=== PATIENT | male | born 1940 | race Caucasian/White ===

== ENCOUNTER 2022-02-11 12:27 | Outpatient (CLI) | payer MEDICARE, SELFPAY ==
--- NOTE | ~2022-02-11 | XR_ITS ---
EXAMINATION: XR lg joint inject/asp w image DATE: 02/11/2022 13:06 INDICATION: Right hip pain. TECHNIQUE: A time-out was performed to verify the patient's name, date of , and procedure to b e performed. The procedure including the risks, benefits, and alternatives was discussed with the pat ient. Risks discussed included bleeding and infection. The patient understood the risks and agreed to proceed. The skin overlying the right hip joint was prepped and draped in usual sterile fashion. A nesthetic was administered with 1% lidocaine subcutaneously. A 22 G needle was advanced under fluoro scopic guidance into the joint. Subsequently, injectate consisting of 5 mL 1% lidocaine and 2 mL 10 mg/mL Kenalog was instilled. The needle was removed and the entry site was cleaned and dressed. The re were no immediate complications. Fluoroscopy exposure time was 0.1 minutes. The total number of im ages was 1. FINDINGS: Real-time fluoroscopy demonstrates the needle in the right hip joint. Patient's pain prior to procedure:12/09. Patient's pain following the procedure: 08/11. IMPRESSION: 1. Fluoroscopy guided right hip joint injection of local anesthetic and steroid with decrease in the patient's presenting pain. Reviewed, dictated and finalized at location A.
== END 2022-02-11 12:28 | disposition home or self-care (01) ==
PROVIDERS: PCP Internal Medicine; Visit Provider Nurse Practitioner
DX: M25.551 Pain in right hip (principal)
CPT/HCPCS: 20610; 77002; J3301

== ENCOUNTER 2022-05-14 07:50 | Outpatient (CLI) | payer MEDICARE, SELFPAY ==
--- NOTE | 2022-05-14 08:47 | ECG_ITS ---
Measurements Intervals [place] Rate: 61 P: 0 MI: 132 QRS: 14 QRSD: 94 T: 30 QT: 416 QTc: 422 Interpretive Statements SINUS RHYTHM NO PREVIOUS ECG AVAILABLE FOR COMPARISON Electronically Signed On 05-14-2022 14:51:58 CDT by Joe Thornton M.D.
[2022-05-14 09:26] LABS: Hemoglobin A1C 4.8 % (<5.7)
[2022-05-14 09:34] LABS: Urine Cotinine NEGATIVE
== END 2022-05-14 07:51 | disposition home or self-care (01) ==
LOC: ANHSURGERY 07:55
PROVIDERS: PCP Internal Medicine; Visit Provider Orthopaedic Surgery
DX: Z01.818 Encounter for other preprocedural examination (principal); M16.11 Unilateral primary osteoarthritis, right hip
CPT/HCPCS: 80307; 83036; 86850; 86900; 86901; 87081; 93005

== ENCOUNTER 2022-07-08 07:53 | Outpatient (CLI) | payer MEDICARE, SELFPAY ==
[2022-07-08 08:55] LABS: Basophils Percent Auto 0.3 % (0.2-1.2); Eosinophils Percent Auto 0.6 % (0-4.4); Hematocrit 42.3 % (42.0-52.0); Hemoglobin 14.5 g/dL (14.0-18.0); Immature Granulocyte Absolute 0.01 K/mm3 (0.00-0.031); Immature Granulocyte Percent A 0.3 % (0-0.5); Lymphocytes Absolute Auto 0.67 K/mm3 (0.9-3.2); Lymphocytes Percent Auto 20.1 % (18.3-44.2); Mean Corpuscular HGB Conc 34.3 g/dl (32-36); Mean Corpuscular Hemoglobin 32.2 pg (26-34); Mean Platelet Volume 10.1 fl (7.4-10.4); Monocytes Absolute Auto 0.5 K/mm3 (0.1-0.6); Monocytes Percent Auto 16.2 % (2.6-8.5); Neutrophils Absolute Auto 2.1 K/mm3 (1.3-6.7); Neutrophils Percent Auto 62.5 % (45.5-73.1); Platelet Count Result 200 k/mm3 (150-375); Red Cell Distribution Width 12.2 % (11.5-14.5); White Blood Count 3.3 K/mm3 (4.5-10.0)
[2022-07-08 09:09] LABS: Albumin Level 4.9 g/dL (3.5-5.1); Estimated Glomerular Filt Rate > 60; Glucose 100 mg/dL (65-110)
== END 2022-07-08 07:54 | disposition home or self-care (01) ==
PROVIDERS: PCP Internal Medicine; Visit Provider Orthopaedic Surgery
DX: Z01.818 Encounter for other preprocedural examination (principal); M16.11 Unilateral primary osteoarthritis, right hip; Z83.3 Family history of diabetes mellitus; Z96.642 Presence of left artificial hip joint
CPT/HCPCS: 36415; 82040; 82565; 82947; 85025; 86850; 86900; 86901; 87081

== ENCOUNTER 2022-08-27 07:49 | Outpatient (CLI) | payer MEDICARE, SELFPAY ==
[2022-08-27 08:48] LABS: Hemoglobin A1C 4.6 % (<5.7)
[2022-08-27 09:12] LABS: Urine Cotinine NEGATIVE
== END 2022-08-27 07:50 | disposition home or self-care (01) ==
LOC: ANHSURGERY 07:50
PROVIDERS: PCP Internal Medicine; Visit Provider Orthopaedic Surgery
DX: M16.11 Unilateral primary osteoarthritis, right hip (principal); Z01.818 Encounter for other preprocedural examination
CPT/HCPCS: 80307; 83036; 86850; 86900; 86901

== ENCOUNTER 2022-08-31 00:06 | Day surgery (SDC) | payer MEDICARE, SELFPAY ==
[2022-05-14 08:02] VITALS: BMI 25.1
--- NOTE | 2022-05-14 08:26 | PC.NURSE ---
Report to the Outpatient Waiting Room, entrance under the green pavilion located off [facility], at time _0600 on date _05/25/22 . OR Time: ___0730 Time changes happen often and if your time is changed the preop area will call you the afternoon before. - You and your visitor will be asked to self-screen and do not enter if you have any COVID symptoms. - We encourage only one visitor and NO visitors under age 16 are allowed at this time. Your visitor will receive communication by the phone number that is given day of service. - The patient visitor is requested to social distance or may leave the building when not with patient due to restrictions. - A mask is required within the hospital. Patients may have clear liquids (water, carbonated beverages, clear teas, apple juice) until 3 hours prior to surgery with a maximum of 20 ounces. - No food from midnight until time of surgery - Infants may have breast milk until 4 hours before surgery, infant formula 6 hours prior to surgery. - Children will be allowed to drink immediately following surgery. If applicable, please bring a bottle or sippy cup to assist with drinking. Juice, water, soda, and popsicles are readily available. For infants on formula, please bring formula the day of surgery. Pacifiers are allowed. Take the following medications with a SIP of water the morning of surgery: __LORAZEPAM Medications to discontinue per physician ____ALL VITAMINS AND SUPPLEMENTS 3 DAYS PRE OP Date to take last dose__05/21/22 Please no make-up, nail anguillan, hairspray, perfume, deodorant, or body powder the day of surgery. No jewelry (including any body piercings) or valuables the day of surgery, leave them at home. Please take a shower or bath the night before, or the morning of, surgery with an antibacterial soap. Wear comfortable, loose fitting clothing. Children are encouraged to wear pajamas. - Jewelry must be removed prior to entering the operating room. Rings and piercings that are not removed may be cut off. - The hospital will not accept responsibility for valuables. - Please leave all valuables, including medications, at home the day of surgery. If you are going home after surgery, a licensed car pick up driver must drive you home. - NO public transportation without another adult. - We recommend that an adult stay with you for 24 hours following discharge. - We also recommend that you do not drive, make important decision, drink alcoholic beverages, or take any drugs that were not prescribed by your health care provider for at least 24 hours after your discharge time. For Pediatric surgeries, we recommend two adults accompany the child home. Follow any additional instructions given to you from your surgeon. If you or anyone in your household have experienced Covid symptoms in the past week, please notify your surgeon or the nurse liaison at the phone number below for possible testing. VERBAL AND WRITTEN instructions given to __PATIENT AND PHIL and asked if any additional questions and then verbalized understanding. Patient advised to call surgeon office or pre surgery nurse liaison [phone] if any additional questions.
[2022-05-14 08:45] VITALS: BP 150/81; PULSE 61; RESP 18; TEMP 36.8; O2SAT 98
--- NOTE | 2022-07-01 13:59 | PC.NURSE ---
Report to the Outpatient Waiting Room, entrance under the green pavilion located off [facility], at time 0600 on date __07/13/22 . Planned Procedure Time: _0730 . Time changes happen often and if your time is changed the preop area will call you the afternoon before. - You and your visitor will be asked to self-screen and do not enter if you have any COVID symptoms. - Only one visitor is requested with a max of two and NO children visitors are allowed at this time. - The patient visitor may be requested to leave or wait in car when not with patient due to distancing restrictions. - A mask is optional within the hospital. Patients may have clear liquids (water, carbonated beverages, clear teas, apple juice) until 3 hours prior to surgery with a maximum of 20 ounces. - No food from midnight until time of surgery - Infants may have breast milk until 4 hours before surgery, formula 6 hours prior to surgery. - Children will be allowed to drink immediately following surgery. If applicable, please bring a bottle or sippy cup to assist with drinking. Juice, water, soda, and popsicles are readily available. For infants on formula, please bring formula the day of surgery. Pacifiers are allowed. Take the following medications with a SIP of water the morning of surgery: ___LORAZEPAM Medications to discontinue per physician __ALL VITAMINS/SUPPLEMENTS 3 DAYS PRE OP Date to take last dose 07/09/22 Please no make-up, nail khmer, hairspray, perfume, deodorant, or body powder the day of surgery. No jewelry (including any body piercings) or valuables the day of surgery, leave them at home. Please take a shower or bath the night before, or the morning of, surgery with an antibacterial soap. Wear comfortable, loose fitting clothing. Children are encouraged to wear pajamas. - Jewelry must be removed prior to entering the operating room. Rings and piercings that are not removed may be cut off. - The hospital will not accept responsibility for valuables. - Please leave all valuables, including medications, at home the day of surgery. If you are going home after surgery, a licensed parts driver must drive you home. - NO public transportation without another adult if you receive anesthesia. - We recommend that an adult stay with you for 24 hours following discharge. - We also recommend that you do not drive, make important decision, drink alcoholic beverages, or take any drugs that were not prescribed by your health care provider for at least 24 hours after your discharge time. For Pediatric surgeries, we recommend two adults accompany the child home. Follow any additional instructions given to you from your surgeon. If you or anyone in your household have experienced Covid symptoms in the past week, please notify your surgeon or the nurse liaison at the phone number below for possible testing. Telephone instructions given to _PATIENT and asked if any additional questions and then verbalized understanding. Patient advised to call surgeon office or pre surgery nurse liaison [phone] if any additional questions.
--- NOTE | 2022-07-01 14:06 | PC.NURSE ---
PT STATES NO CHANGE IN HEALTH HX SINCE LAST INTERVIEW 05/14/22 EXCEPT HAD SOME TEETH EXTRACTED ON 2021
--- NOTE | 2022-08-24 10:18 | PC.NURSE ---
Report to the Outpatient Waiting Room, entrance under the green pavilion located off [facility], at time _0600 on date __08/31. . Planned Procedure Time: __729 . Time changes happen often and if your time is changed the preop area will call you the afternoon before. - You and your visitor will be asked to self-screen and do not enter if you have any COVID symptoms. - Only one visitor is requested with a max of two and NO children visitors are allowed at this time. - The patient visitor may be requested to leave or wait in car when not with patient due to distancing restrictions. - A mask is optional within the hospital. Patients may have clear liquids (water, carbonated beverages, clear teas, apple juice) until 3 hours prior to surgery with a maximum of 20 ounces. - No food from midnight until time of surgery - Infants may have breast milk until 4 hours before surgery, formula 6 hours prior to surgery. - Children will be allowed to drink immediately following surgery. If applicable, please bring a bottle or sippy cup to assist with drinking. Juice, water, soda, and popsicles are readily available. For infants on formula, please bring formula the day of surgery. Pacifiers are allowed. Take the following medications with a SIP of water the morning of surgery: LORAZEPAM Medications to discontinue per physician ___ALL VITAMINS AND SUPPLEMENTS 3 DAYS PRE OP LAST DOSE 08/27/22 Please no make-up, nail japanese, hairspray, perfume, deodorant, or body powder the day of surgery. No jewelry (including any body piercings) or valuables the day of surgery, leave them at home. Please take a shower or bath the night before, or the morning of, surgery with an antibacterial soap. Wear comfortable, loose fitting clothing. Children are encouraged to wear pajamas. - Jewelry must be removed prior to entering the operating room. Rings and piercings that are not removed may be cut off. - The hospital will not accept responsibility for valuables. - Please leave all valuables, including medications, at home the day of surgery. If you are going home after surgery, a licensed mail truck driver must drive you home. - NO public transportation without another adult if you receive anesthesia. - We recommend that an adult stay with you for 24 hours following discharge. - We also recommend that you do not drive, make important decision, drink alcoholic beverages, or take any drugs that were not prescribed by your health care provider for at least 24 hours after your discharge time. Follow any additional instructions given to you from your surgeon. If you or anyone in your household have experienced Covid symptoms in the past week, please notify your surgeon or the nurse liaison at the phone number below for possible testing. Telephone instructions given to ___PATIENT and asked if any additional questions and then verbalized understanding. Patient advised to call surgeon office or pre surgery nurse liaison [phone] if any additional questions.
[2022-08-24 10:20] VITALS: BMI 25.0
[2022-08-31] VITALS (13 sets, daily range): BP systolic 117–198; BP diastolic 77–99; PULSE 65–114; RESP 13–25; TEMP 36.2–36.9; O2SAT 94–100
--- NOTE | ~2022-08-31 | XR_ITS ---
EXAMINATION: XR surgery orthopedic DATE: 08/31/2022 10:49 INDICATION: Right hip osteoarthritis. TECHNIQUE: 3 intraoperative fluoroscopic views of right hip were obtained. I was not present. Fluoros copy exposure time was 21 seconds. COMPARISON: Right hip radiographs 08/20/22 FINDINGS: The initial image demonstrates advanced right hip osteoarthritis. Additional images demonst rate a total right hip arthroplasty in progress in near-anatomic alignment. IMPRESSION: 1. Total right hip arthroplasty in progress in near-anatomic alignment. Reviewed, dictated and finalized at location A. HER FISH
--- NOTE | ~2022-08-31 | XR_ITS ---
EXAMINATION: XR hip RT min 2V DATE: 08/31/2022 10:47 INDICATION: Total right hip arthroplasty. Postop. TECHNIQUE: 2 views of right hip were obtained. COMPARISON: Right hip radiograph 08/20/22 FINDINGS: There is a total right hip arthroplasty in near-anatomic alignment. No fracture. There is g as in the soft tissues, consistent with recent surgery. Surgical clips overlie the pelvis. IMPRESSION: 1. Total right hip arthroplasty in near-anatomic alignment. Reviewed, dictated and finalized at location A. R [employer]
[2022-08-31] MEDS: LACTATED RINGERS 1,000 ML 30 ML IV CONT ×2 (06:25→10:22)
[2022-08-31] MEDS: ACETAMINOPHEN 500 MG TABLET 1000 MG PO (06:29)
[2022-08-31] MEDS: TRANEXAMIC ACID 1,000MG/ISO100 1,000 MG/100 ML BAG 200 MG IVPB (06:55)
--- NOTE | 2022-08-31 07:04 | WPDANESEPPF ---
Anes - Initial Pre Proc Eval Procedure: Operation Date: 08/31/22 07:30 Proposed Procedures p Right Total Hip Arthroplasty, Anterior Approach - Lucas Sevilla MD Date/Time: 08/31/22 07:04 Surgeon: Lucas Sevilla MD Pre Op Diagnosis: O.A. Right Hip Patient Data Age: 82 Gender: M Height: 1.7 m Weight: 70 kg Last Vital Signs Temp 36.9 C 08/31/22 06:10 Pulse 72 08/31/22 06:10 Resp 16 08/31/22 06:10 BP 171/90 H 08/31/22 06:10 Pulse Ox 100 08/31/22 06:10 O2 Del Method Room Air 08/31/22 06:10 Allergies Allergy/AdvReac Type Severity Reaction Status Date / Time No Known Allergies Allergy Verified 08/31/22 06:08 Home Medications Medication Instructions Recorded Confirmed Type ascorbate calcium (vitamin C) 500 500 mg PO DAILY 02/04/22 08/31/22 History mg tablet multivitamin 1 tablet PO DAILY 02/04/22 08/31/22 History lorazepam 0.5 mg tablet 0.5 mg PO DAILY 05/14/22 08/31/22 History acetaminophen 650 mg 650 mg PO Q12H PAIN 05/19/22 08/31/22 History tablet,extended release (Tylenol Arthritis Pain) rivaroxaban 10 mg tablet (Xarelto) 10 mg PO DAILY 14 days #14 tabs 08/20/22 08/24/22 Rx Patient hx anesthesia problems: none Family hx anesthesia problems: none Results Review: All pre-operative results and documents have been reviewed as part of the pre-operative evaluation. [facility] Past Medical History Medical History No significant past medical history Primary osteoarthritis of right hip Surgical History Surgical History History of left hip replacement Dr. St - anterior Family History Family History Mother Diabetes mellitus Cerebrovascular accident Other Family history of cancer Social History Social History Smoking packs per day: 0.5 Smoking cigarettes per day: 10.0 Years smoked: 10 Smoking pack-years: 5.00 Smoking status: Former smoker Tobacco type: cigarettes Smoking end date: 08/02/69 Additional smoking assessment comments: DENIES ANY FORM OF TOBACCO USE Alcohol intake: current Drinks per week: 14 Alcohol use details: Wine Substance use: never Living arrangements: with family Occupation/Education: retired Gender identity (if verbalized by the patient): Male Spiritual care concerns: No Anes - Eval Final PreProcedure Day of Procedure 08/31/22 07:04 Patient weight: normal Heart: regular rate and rhythm Lungs: clear to auscultation Airway: Mallampati scale class II Neurological: alert and oriented Last oral intake: >/= 8 hours ASA classification: III Emergent: no Anesthetic plan: proceed Anesthesia type and monitoring: general ETT and standard monitoring Results Review: All pre-operative results and documents have been reviewed as part of the pre-operative evaluation. Informed Consent: The patient's anesthetic plan and its attendant risks and benefits were discussed with the patient/family/POA. Questions were solicited and answers provided to the satisfaction of the patient/family/POA.
--- NOTE | 2022-08-31 07:32 | WPDHPUPDATE1 ---
History and Physical Update Update Date/Time: 08/31/22 07:32 History and Physical has been reviewed, including an updated exam of the patient. There are NO changes in the patient's condition. Risks, benefits, and alternatives have been discussed and questions answered. Patient agrees to proceed with procedure.
[2022-08-31] MEDS: ceFAZolin 2 GM/D5W 50 ML 2 GM/50 ML BAG IVPB ×2 (07:36→16:20)
[2022-08-31] MEDS: ceFAZolin SODIUM 1 GM VIAL IV PUSH (09:49)
--- NOTE | 2022-08-31 09:55 | SUR.OPER ---
150mL of clear yellow urine drained from hernandez
--- NOTE | 2022-08-31 10:30 | W.PM.PROC2 ---
Procedure Note - Detailed Date of Procedure 08/31/22 Pre-op Diagnosis O.A. Right Hip Post-op Diagnosis Same Procedure Performed Right total hip replacement through an anterior approach Surgeon Lucas Sevilla MD Lighting Specialist Ghislaine Goncalves Anesthesia General Description of Procedure The patient was identified, proper side identified, and then taken to the operating room. After general anesthetic induction and intubation, he was then transferred over to the [place] table positioning supine in the usual manner for an anterior hip procedure. Positioning was assessed fluoroscopically after which the right hip and thigh was prepped and draped in the usual sterile fashion. 10 cc of the arthroplasty solution was injected into the subcutaneous tissue over the TFL muscle belly. Longitudinal incision was made over the muscle belly. Subcutaneous tissue was sharply dissected down to the TFL fascia which was incised in line with the fibers the TFL. The TFL was retracted laterally and the rectus femoris medially. The rectus fascia was divided. The branches of the anterior femoral circumflex artery were identified and cauterized allowing for access to the hip capsule. Pericapsular fatty tissue was removed. The capsule was divided in an inverted T-fashion. The neck cut was made one fingerbreadth above the level of the lesser trochanter. Head fragment was removed and the acetabulum cleared of debris. Acetabulum was sequentially reamed under fluoroscopic visualization up to 57 mm. A 58 G7 acetabular cup was inserted under fluoroscopic visualization in approximately 40? of abduction and 15? of anteversion following the patient's anatomy. It was further secured with a single screw and then the liner for the size 36 head was placed. The femur was then delivered up into the wound with the appropriate releases. The proximal femur was prepared for the 13 high offset microplasty stem and a trial reduction was undertaken. Overall alignment was assessed fluoroscopically in the AP and lateral views noting it to be satisfactory. Trial components were removed. The wound was irrigated with pulsatile lavage. The real size 13 high offset micro plasty stem was then seated. This construct with a standard, size 36 head gave excellent evangelical of leg lengths and stability so the real standard size 36 ceramic head was attached to the neck of the femoral component after it had been cleaned and dried. Hip was again reduced and stability assessed, and it was noted to be stable. 3 minute dilute Betadine wash/soak was carried out. After final lavage of the wound, the periarticular tissues were injected with an additional 50 cc of the arthroplasty solution. Surgicel powder was used for additional hemostasis in the wound. The TFL fascia with 0 looped PDS suture, the subcu with two of strata fix in the deeper layers and two of strata fix subcuticular stitch. Tissue adhesive was used for the skin. Sterile dressing was applied. He tolerated the procedure well. He was transferred back to a bed and taken to recovery area in stable condition. There were no known intraoperative complications. Estimated blood loss was 250 cc. He received perioperative antibiotics. Estimated Blood Loss -250.0 Urine Output -150.0 Drains No Packing No Pathology None sent Complications No immediate complications Condition Stable Disposition PACU [facility] Billing Surgery - Charge Forward: Surgery Billing (78589 for the hip replacement; 51204 for intraoperative fluoroscopic use.)
[2022-08-31] MEDS: fentaNYL CITRATE INJ (*CRX) 100 MCG/2 ML VIAL 25 MCG IV PUSH ×3 (10:35→10:47)
--- NOTE | 2022-08-31 10:39 | SUR.PHASEI ---
PORTABLE XRAY OF RIGHT HIP IN PROGRESS.
[2022-08-31] MEDS: hydrALAZINE HCL 20 MG/ML VIAL 10 MG IV PUSH (11:04)
--- NOTE | 2022-08-31 11:19 | SUR.PHASEI ---
1100 DR. LU CALLED RE: HYPERTENSION; ORDERED HYDRALAZINE TO BE GIVEN.
--- NOTE | 2022-08-31 11:51 | ADMGEN ---
This patient, Phillip Styles, was admitted to 2 Medical Room 251-. Patient/family oriented to hospital policies and general routines including ID bracelet, bed and alarms, visiting hours, pain management, procedures, bathroom and other care routines, personal items, smoking policy, room service/diet, and visiting hours. Information on how to activate the Rapid Response Team has been discussed. Patient/Family are encouraged to report perceived risks to care and to ask questions if they do not understand what they are told or what they should do.
[2022-08-31] MEDS: HYDROcodone/acetaminophen (*CRX) 5-325 MG TABLET 1 TAB PO ×3 (12:12→18:47)
[2022-08-31 12:15] LABS: Hematocrit 41.1 % (42.0-52.0); Hemoglobin 13.9 g/dL (14.0-18.0)
[2022-08-31] MEDS: SENNA/DOCUSATE SODIUM TABLET 2 TAB PO (16:20)
[2022-08-31] MEDS: FAMOTIDINE 20 MG TABLET PO (20:08)
[2022-08-31] MEDS: HYDROcodone/acetaminophen (*CRX) 5-325 MG TABLET 2 TAB PO (21:47)
--- NOTE | 2022-08-31 23:00 | WPDCN ---
Assessment and Plan Assessment and plan (1) Primary osteoarthritis of right hip: Code(s): M16.11 - Unilateral primary osteoarthritis, right hip Status: Chronic Assessment and Plan: Postoperative day 0 status post right total hip replacement through an anterior approach. Wound care and DVT prophylaxis deferred to Dr. Sevilla. Pain has not been very well controlled and she is describing muscle spasms and cramps thus will try 1 time dose of p.o. diazepam to see if that may help control his pain a bit better. Baseline labs ordered for a.m.. Agree with PT/OT consult. (2) Elevated blood pressure reading: Code(s): R03.0 - Elevated blood-pressure reading, without diagnosis of hypertension Status: Acute Assessment and Plan: Blood pressures were significantly elevated postoperatively, likely due to pain. He has no prior history of hypertension. For now will continue to monitor blood pressures closely to see how he trends. I would be hesitant to start him on antihypertensives in the postoperative phase unless his blood pressures are significantly elevated. Ambulatory monitoring may be appropriate on discharge. (3) Anxiety: Code(s): F41.9 - Anxiety disorder, unspecified Status: Acute Assessment and Plan: Resume lorazepam 0.5 mg p.o. daily tomorrow. Plan Thank you for allowing us to participate in this patient's care. Please do not hesitate to contact us with any questions. HPI Data of Consult Date/Time: 08/31/22 23:00 Requesting Physician: Lucas Sevilla MD Consult Narrative Reason for consult: Postoperative medical management. Narrative: This is a very pleasant 82-year-old male with history of prostate and bladder cancer, osteoarthritis, and anxiety whom the hospitalist service has been consulted for help managing his medical conditions postoperatively. Patient provides the following history. He has had ongoing pain in his right hip which has not been amenable to conservative outpatient treatment. He elected for replacement today and he is now status post right total hip replacement through an anterior approach. His surgery was performed under general anesthesia with no immediate complications documented an estimated blood loss of 250 mL. His pain has not been very well controlled and he describes pretty severe pain in the right thigh and knee, almost like a spasm or cramping pain. [place] has not helped much. Ice perhaps takes the edge off a little bit. He has blood pressures have been running high postoperatively, likely due to the pain, and he has no known history of hypertension. Additionally he has had some mild nausea but was able to tolerate a small dinner. He denies fever, chills, chest pain, shortness a breath, and vomiting. No paresthesias, skin color, or temperature changes distal to the surgical site. He denies personal and family history of venous thromboembolism. On discharge his is going to be helping him at home. Review of Systems Review of Systems: Twelve systems were reviewed and are negative except for as per HPI. REPLACED BY [facility] Past Medical History Medical History Anxiety Basal cell carcinoma Bladder cancer Primary osteoarthritis of right hip Prostate cancer Surgical History Surgical History History of basal cell carcinoma excision Right cheek and right shoulder. History of bilateral cataract extraction History of left hip replacement (2011) Dr. St - anterior approach. History of prostatectomy History of right hip replacement (08/31/22) Dr. Sevilla - anterior approach. History of transurethral resection of bladder tumor (TURBT) Family History Family History Mother Diabetes mellitus Cerebrovascular accident Other Family history of cancer Social History Social Histor
[2022-09-01] MEDS: ceFAZolin 2 GM/D5W 50 ML 2 GM/50 ML BAG IVPB ×2 (00:28→07:51)
[2022-09-01] MEDS: diazePAM (*CRX) 2.5 MG TABLET PO (00:28)
[2022-09-01 01:22] VITALS: BP 149/90; PULSE 88; RESP 18; TEMP 36.8; O2SAT 97
[2022-09-01 05:03] VITALS: BP 142/78; PULSE 81; RESP 18; TEMP 36.8; O2SAT 98
[2022-09-01] MEDS: HYDROcodone/acetaminophen (*CRX) 5-325 MG TABLET 2 TAB PO ×2 (05:07→12:11)
[2022-09-01 05:46] LABS: Hematocrit 37.8 % (42.0-52.0); Hemoglobin 12.6 g/dL (14.0-18.0); Mean Corpuscular HGB Conc 33.3 g/dl (32-36); Mean Corpuscular Hemoglobin 32.9 pg (26-34); Mean Corpuscular Volume 98.7 fl (80-100); Platelet Count Result 185 k/mm3 (150-375); Red Blood Count 3.83 M/mm3 (4.6-6.20); Red Cell Distribution Width 13.5 % (11.5-14.5); White Blood Count 7.9 K/mm3 (4.5-10.0)
[2022-09-01 05:56] LABS: Anion Gap 4 mmol/L (8-16); Blood Urea Nitrogen 11 mg/dL (9-20); Calcium 8.6 mg/dL (8.4-10.2); Carbon Dioxide 32 mmol/L (22-30); Chloride 102 mmol/L (98-107); Estimated CRCL calculation 58 ml/min; Estimated Glomerular Filt Rate > 60; Glucose 106 mg/dL (65-110); Potassium 4.4 mmol/L (3.4-5.0); Sodium 138 mmol/L (137-145)
[2022-09-01] MEDS: ACETAMINOPHEN 325 MG TABLET 650 MG PO (07:54)
[2022-09-01] MEDS: SENNA/DOCUSATE SODIUM TABLET 2 TAB PO (07:55)
[2022-09-01] MEDS: ASCORBIC ACID 500 MG TABLET PO (07:55)
[2022-09-01] MEDS: CELECOXIB 100 MG CAPSULE PO (07:55)
[2022-09-01] MEDS: FAMOTIDINE 20 MG TABLET PO (07:55)
[2022-09-01] MEDS: MULTIVITAMINS THERAPEUTIC TAB (*BKC) 1 TABLET PO (07:56)
[2022-09-01] MEDS: LORazepam (*CRX) 0.5 MG TABLET PO (07:56)
[2022-09-01] MEDS: polyethylene glycoL 3350 17 GM POWD.PACK PO (07:56)
[2022-09-01] MEDS: RIVAROXABAN 10 MG TABLET PO (07:56)
--- NOTE | 2022-09-01 08:19 | PM.DS ---
DS: Admitting Diagnosis Discharge Date 09/01/2022 Admitting Diagnosis Primary osteoarthritis of right hip DS: Discharge Diagnosis Discharge Diagnosis (1) Status post total hip replacement, right: Code(s): Z96.641 - Presence of right artificial hip joint Status: Acute Plan 82-year-old male postop day 1 after total right hip replacement using anterior approach. Overall doing well but is struggling with a bit of pain into the anterior right thigh. He was also a bit nauseous yesterday after surgery but this seems to have cleared up. He was able to participate with therapy yesterday and has been ambulating the hallways. Plan to see therapy in today and discharge this afternoon. Postoperative wound care was discussed with him. Medications were reviewed. Plan follow-up in 2 weeks in the office for wound check. He was informed to call our office if any further questions or concerns prior to that scheduled follow-up. DS: Summary Hospital Course Reason for hospitalization: Observation after outpatient procedure Hospital Course: 82-year-old male admitted for observation after right total hip replacement. He did have a bit of high blood pressure following surgery this is likely related to his pain level. He was seen by therapy following the procedure and plan to do so again this morning. Plan discharge home later this afternoon. Status at Discharge Functional status at discharge: uses cane/walker Overall status at discharge: patient is progressing back to baseline Time Spent with Patient Time attestation: Total time spent providing and/or coordinating discharge services: Time spent: Less than 30 minutes Exam Const: General: comfortable and no acute distress Eyes: General: appearance normal, both eyes and all related structures Resp: Effort & Inspection: normal respiratory effort GI: Inspection: non-distended Skin: General skin exam: normal color and no erythema Neuro: Sensory Exam: normal sensation Extrem: Other: Exam of the right hip shows a clean and dry surgical dressing. Mild swelling distal to the surgical site, consistent with recent total right hip replacement. Neurovascular status right lower extremity is intact. Psych: Mental Status: mental status grossly normal Radiology Reports: Comments: EXAMINATION: XR hip RT min 2V DATE: 08/31/2022 10:47 INDICATION: Total right hip arthroplasty. Postop. TECHNIQUE: 2 views of right hip were obtained. COMPARISON: Right hip radiograph 08/20/22 FINDINGS: There is a total right hip arthroplasty in near-anatomic alignment. No fracture. There is gas in the soft tissues, consistent with recent surgery. Surgical clips overlie the pelvis. IMPRESSION: 1. Total right hip arthroplasty in near-anatomic alignment. Hip X-Ray 08/31/22 Hip and Pelvis X-Ray 05/19/22 Orthopedics Result Report 08/20/22 DS: Data Data Completed and Pending Labs on day of discharge: Labs from last 24 hours 09/01/22 09/01/22 08/31/22 05:24 05:24 12:05 WBC 7.9 RBC 3.83 L Hgb 12.6 L 13.9 L Hct 37.8 L 41.1 L MCV 98.7 MCH 32.9 MCHC 33.3 RDW 13.5 Plt Count 185 MPV 10.0 Sodium 138 Potassium 4.4 Chloride 102 Carbon Dioxide 32 H Anion Gap 4 L BUN 11 Creatinine 0.80 Estim Creat Clear Calc 58 Estimated GFR > 60 Glucose 106 Calcium 8.6 Discharge Plan Discharge Patient Disposition: Home, Self-Care Discharge Instructions: 3 times daily for 20 minutes each time, reclining in bed with ice packs over the incision and a pillow underneath the calf of the affected leg, not under the knee. Do this for the next 2-3 weeks. Your wound is glued so it is okay to remove the dressing, get into the shower and get the wound wet in two days. Be sure to read through all the information that came from a my office and the hospital. Most of the answers you will need can be found that material. Call
--- NOTE | 2022-09-01 09:50 | WPDANESPN ---
Anes - Prog Note Post-Op Date/Time: 09/01/22 09:50 Cardiovascular status: normal Respiratory status: normal Airway patency: baseline Mental status: baseline Post-Op hydration status: normal Vital Signs: Last Vital Signs Temp 36.8 C 09/01/22 05:03 Pulse 81 09/01/22 05:03 Resp 18 09/01/22 05:03 BP 142/78 H 09/01/22 05:03 Pulse Ox 98 09/01/22 05:03 O2 Del Method Room Air 09/01/22 00:00 O2 Flow Rate 8 08/31/22 10:50 Pain Score (VAS): 10/09 I/O: Intake & Output 08/31/22 09/01/22 09/01/22 23:59 07:59 15:59 Intake Total 590 300 Output Total 550 2400 Balance 40 -2100 Laboratory Tests 09/01/22 05:24 09/01/22 05:24 08/31/22 09/01/22 09/01/22 12:05 05:24 05:24 WBC 7.9 RBC 3.83 L Hgb 13.9 L 12.6 L Hct 41.1 L 37.8 L MCV 98.7 MCH 32.9 MCHC 33.3 RDW 13.5 Plt Count 185 MPV 10.0 Sodium 138 Potassium 4.4 Chloride 102 Carbon Dioxide 32 H Anion Gap 4 L BUN 11 Creatinine 0.80 Estim Creat Clear Calc 58 Estimated GFR > 60 Glucose 106 Calcium 8.6 Post-procedural complaints: none Patient Feedback: Patient satisfied with anesthetic care.
[2022-09-01 10:00] VITALS: BP 101/62; PULSE 68; RESP 20; TEMP 36.8; O2SAT 98
--- NOTE | 2022-09-01 10:35 | PM.IMPN ---
Progress Note: A&P Assessment and Plan (1) Primary osteoarthritis of right hip: Code(s): M16.11 - Unilateral primary osteoarthritis, right hip Status: Resolved Assessment and Plan: Postoperative day 1 status post right total hip replacement through an anterior approach. Wound care and DVT prophylaxis deferred to Orthopedic team. Postop pain management improving. (2) Elevated blood pressure reading: Code(s): R03.0 - Elevated blood-pressure reading, without diagnosis of hypertension Status: Acute Assessment and Plan: Blood pressures were significantly elevated postoperatively SBP 190s, likely due to pain. He has no prior history of hypertension. BP significantly improved this morning with better pain control. No antihypertensives initiated. Consider ambulatory monitoring outpatient per PCP if elevated BP persists at follow up. He was counseled on lifestyle medications and risks of persistent hypertension. (3) Anxiety: Code(s): F41.9 - Anxiety disorder, unspecified Status: Chronic Assessment and Plan: Resume lorazepam 0.5 mg p.o. daily home medication. Plan Thank you for allowing us to participate in this patient's care. Please do not hesitate to contact us with any questions. Time Spent With Patient Time with patient: 15 - 25 minutes Subjective Date/time seen: 09/01/22 10:35 Patient is an 82-year-old male with history of prostate and bladder cancer, osteoarthritis, and anxiety who underwent right ZAK and was noted to have postop hypertension, as well as severe postoperative pain. We were consulted to assist with medical therapy. Patient found ambulating in the room with FWW. He reports his pain is an 8/10, but improved from yesterday. He denies vision changes, chest pain, SOB, palpitations, facial droop, slurred speech, abd pain, N/V/D, or unilateral extremity weakness. BP 101/62 to 142/78. HR 68 to 81. He did not receive any antihypertensive medications on the medical floor. Review of Systems Review of Systems: All systems reviewed & are unremarkable except as noted in HPI and below Exam Narrative: General: Well-developed, well-nourished male ambulating in the room. BMI: 24.2. HEENT: PERRL, EOMI. Sclera anicteric. Oral mucosa moist. Neck: Supple. Respiratory: Lungs are clear to auscultation bilaterally. No adventitious breath sounds. Cardiovascular: Regular rate and rhythm with S1-S2. No murmurs, gallops or rubs. Gastrointestinal: Abdomen soft, nontender, and nondistended with positive bowel sounds. Skin: Warm and dry. No rash or lesions on limited exam. Extremities: No cyanosis, clubbing, or edema. Radial and pedal pulses intact. Musculoskeletal: Right hip dressing is clean, dry, and intact. RLE intact sensation, movement and <3 sec cap refill. Neurological: Alert & oriented x4. Cranial nerves 2-12 grossly intact. No gross focal deficits to casual conversation. No facial droop. Psychiatric: Pleasant and cooperative with normal mood and affect. Objective Data Vital Signs Vital Signs: Vital Signs - 24 hr 08/31/22 10:50 08/31/22 11:05 08/31/22 11:20 Temperature 98.2 F Pulse Rate 73 72 77 Respiratory Rate 13 14 16 Blood Pressure 192/98 H 191/98 H 159/92 H Pulse Oximetry 100 98 94 Oxygen Delivery Simple Face Mask Room Air Room Air Oxygen Flow Rate 8 08/31/22 11:35 08/31/22 13:03 08/31/22 11:39 Temperature 97.3 F L Pulse Rate 79 81 Respiratory Rate 25 H 18 Blood Pressure 161/98 H 157/82 H Pulse Oximetry 97 97 Oxygen Delivery Room Air Room Air Oxygen Flow Rate 08/31/22 11:54 08/31/22 12:24 08/31/22 13:24 Temperature 97.3 F L 97.2 F L 97.1 F L Pulse Rate 85 110 H 114 H Respiratory Rate 18 18 18 Blood Pressure 153/87 H 136/79 117/77 Pulse Oximetry 96 98 98 Oxygen Delivery Oxygen Flow Rate 08/31/22 18:36 08/31/22 21:12 09/01/22 00:00 Temperature 97.4 F L 98.3 F Pulse Rate 82 83 Respir
== END 2022-09-01 13:00 | disposition home or self-care (01) ==
LOC: ANHSURGERY 05:51 → ANH2MED 11:41
PROVIDERS: Physician Assistant; PCP Internal Medicine; Visit Provider Orthopaedic Surgery
PROC: (CPT 27130; principal; 2022-08-31 07:30)
DX: M16.11 Unilateral primary osteoarthritis, right hip (principal); R03.0 Elevated blood-pressure reading, without diagnosis of hypertension; F41.9 Anxiety disorder, unspecified; Z87.891 Personal history of nicotine dependence; Z79.01 Long term (current) use of anticoagulants
CPT/HCPCS: 27130; 36415; 73502; 80048; 85014; 85018; 85027; 97110; 97116; 97161; 97165; 97530; 97535; 99199; A9270; C1776; J0171; J0360; J0690; J1100; J1170; J2270; J2405; J2704; J2710; J2795; J3010; J7120

== ENCOUNTER → 2023-07-29 09:33 | Outpatient (CLI) | payer MEDICARE, SELFPAY ==
--- NOTE | ~2023-07-29 | XR_ITS ---
XR hip RT 2V w AP pelvis DATE: 07/29/2023 09:52 INDICATION: Right artificial hip joint TECHNIQUE: AP pelvis. AP and lateral views of right hip COMPARISON: None FINDINGS: There is severe degenerative disc disease at L3-4, L4-5 and L5-S1 and mild dextroscoliosis of the lumbar spine. The pubic symphysis and sacroiliac joints are intact. No pelvic fracture or bone destruction is detec diallo. There are surgical clips overlying the prostate bed and the obturator areas consistent with prostatec goldie. Status post bilateral total hip arthroplasty. No recent fracture or dislocation of the right hip. There is a prominent amount of fecal material in the colon. IMPRESSION: Severe degenerative disc disease at L3-4, L4-5 and L5-S1 Status post bilateral total hip arthroplasty Status post prostatectomy Reviewed, dictated and finalized at location A. CRIPTION AGENT
== END ==
PROVIDERS: PCP Orthopaedic Surgery; Visit Provider Orthopaedic Surgery
DX: Z96.641 Presence of right artificial hip joint (principal); M51.36 Other intervertebral disc degeneration, lumbar region; M51.37 Other intervertebral disc degeneration, lumbosacral region
CPT/HCPCS: 73502

== ENCOUNTER 2023-11-04 07:02 | Outpatient (CLI) | payer MEDICARE, SELFPAY ==
--- NOTE | ~2023-11-04 | CT_ITS ---
EXAMINATION: CT abdomen pelvis w con DATE: 11/04/2023 07:42 INDICATION: Abdominal pain TECHNIQUE: Computed tomography (CT) of the abdomen and pelvis was performed with 100 CC Omnipaque 350 intravenous contrast. Automated exposure control and iterative reconstruction technique were employe d. Exam dose: 451.89 mGy-cm total exam DLP. COMPARISON: None. FINDINGS: The lung bases are clear. No pericardial or pleural effusion. 3.1 cm ascending thoracic aortic aneurysm. Occasional up to 8 mm hepatic cysts. Normal splenic size. Multiple calcified splenic granulomas. No pancreatic mass lesion, calcification or pancreatic or bile duct dilatation is noted. Normal morphology of the adrenal glands. 5 cm lower pole left renal cyst. The kidneys are otherwise unremarkable. No urinary tract calculus or hydroureteronephrosis is evident. There is extensive streak artifact through the pelvic area due to bilateral hip replacements, limitin g evaluation of the pelvic structures. Multiple surgical clips are noted in the pelvis, likely due to prostatectomy and bilateral pelvic lymph node dissection. The urinary bladder is not very distended largely secured by artifact. No abdominal aortic aneurysm. No intraperitoneal or retroperitoneal or pelvic mass lesion or adenopat hy or ascites is noted. There is a prominent amount of fecal material throughout the rectum and colon. No bowel obstruction o r intraperitoneal free air is detected. Degenerative changes of the lower thoracic and lumbar spine including severe degenerative disc diseas e at L3-4, L4-5 and L5-S1. Prominent degenerative change of the lumbar apophyseal joints. No suspicious osteolytic or osteoblastic lesions are noted. IMPRESSION: 3.1 cm descending thoracic aortic aneurysm Hepatic cysts 5 cm lower pole left renal cyst Status post prostatectomy Material throughout the rectum and colon; no bowel obstruction Reviewed, dictated and finalized at Location [facility]. Reviewed, dictated and finalized at location B.
[2023-11-04 07:27] LABS: Estimated Glomerular Filt Rate > 60
== END 2023-11-04 07:03 | disposition home or self-care (01) ==
PROVIDERS: PCP Internal Medicine; Visit Provider Internal Medicine
DX: R10.9 Unspecified abdominal pain (principal); N28.1 Cyst of kidney, acquired; K76.0 Fatty (change of) liver, not elsewhere classified; I71.20 Thoracic aortic aneurysm, without rupture, unspecified
CPT/HCPCS: 74177; Q9967

== ENCOUNTER 2024-11-06 09:53 | Outpatient (CLI) | payer MEDICARE, SELFPAY ==
--- NOTE | ~2024-11-06 | CT_ITS ---
Non-contrast CT scan of the Abdomen and Pelvis Clinical indication: Right inguinal hernia COMPARISON: 11/04/2023 Technique: 2.5 mm axial scans were obtained through the abdomen and pelvis without intravenous or or al contrast. Dose reduction technique was used on this scan by utilizing automated exposure control a nd iterative reconstruction technique. The dose-length product (DLP) was 412.96 mGy-cm. Findings: Images through the lung bases reveal no abnormalities. There is no evidence of renal or ureteral calculi. The kidneys and the ureters are nondilated. The liver, spleen, pancreas, gallbladder, and adrenals appear normal. There is no aortic aneurysm. There is no evidence of bowel obstruction. Right inguinal hernia contains several focal small bowel l oops. Images through the pelvis are degraded by streak artifact from bilateral hip arthroplasty. There is n o evidence of ascites or lymphadenopathy. Urinary bladder grossly unremarkable. No definite pelvic ma ss seen. There is moderate degenerative change of the lumbar spine. Impression: Right inguinal hernia containing small bowel loops. No bowel obstruction or bowel wall thickening. Reviewed, dictated and finalized at location . Impression: Right inguinal hernia containing small bowel loops. No bowel obstruction or bow el wall thickening.
--- OUTSIDE RECORDS SUMMARY | 2024-11-06 11:13 | XMS_ITS | Clinical Summary ---
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
--- OUTSIDE RECORDS SUMMARY | 2024-11-06 11:14 | XMS_ITS | Referral Summary ---
Author Organization [facility] Address [address] [place] [phone] Care Team Providers Care Lithographers Printer Name Role Phone Miles Vera DC Primary Care Provider [phone] Allergies No known active allergies Medications No known medications Active Problems No known active problems Social History Tobacco Use Types Packs/Day Years Used Date Smoking Tobacco: Never Smokeless Tobacco: Never Personal Safety Answer Date Recorded Getting School Help Needed Not on file 09/26 Sex and Gender Information Value Date Recorded Sex Assigned at Not on file 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 Gender Identity Not on file Sexual Orientation Not on file Last Filed Vital Signs Vital Sign Reading Time Taken Comments Blood Pressure - - Pulse - - Temperature - - Respiratory Rate - - Oxygen Saturation - - Inhaled Oxygen Concentration - - Weight 72.6 kg (160 lb) 06/24/2021 10:06 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
--- OUTSIDE RECORDS SUMMARY | 2024-11-06 11:14 | XMS_ITS | Clinical Summary ---
Author Organization [facility] Address [address] [place] [address] Care Team Providers Care Home Stereo Equipment Installer Name Role Phone Unavailable Primary Care Provider Unavailabl e Source Comments [facility],non-owned Affiliates and Associated Physician Practices is amultiple site organization consisting of ambulatory clinics and hospital sitesin [place], [place], [place] and [place]. This disclosure is being madepursuant to the Care Everywhere program and may not contain all information available regarding this patient. Last updated 18.[facility] Allergies No known active allergies Medications * Be aware that medications may not be up to date on this document. Alwaysverify current medications with the patient. Medication Sig Dispensed Refills Start Date End Date Status clorazepate (TRANXENE) 7.5 MG tablet Take 7.5 mg by mouth as needed. Active multivitamin daily (THERAGRAN) tablet Take 1 Tab by mouth daily with food. Active calcium-vitamin D (OS-CHARLIE 500 + D) 500-200 MG-UNIT tablet Take 1 Tab by mouth once daily. Active vitamin C (ASCORBIC ACID) 500 MG tablet Take 500 mg by mouth once daily. Active Green Tea, Camillia sinensis, (GREEN TEA PO) Take by mouth once daily. Active ciprofloxacin (CIPRO) 500 MG tablet Take 1 Tab by mouth every 12 hours. 6 Tab 0 04/11/2012 Active hydrocodone-acetaminop hen (VICODIN) 5-500 MG tablet Take 1-2 Tabs by mouth every 6 hours as needed for Pain. 28 Tab 0 04/11/2012 Active Active Problems Problem Noted Date Diagnosed Date Bladder cancer 04/10/2012 Hematuria 11/29/2011 Immunizations Name Administration Dates Next Due INFLUENZA VACCINE, HIGH-DOSE , QUADR. (FLUZONE HIGH-DOSE QUADRIVALENT; 65Y+), 0.7 ML (HD-IIV4) 05/10/2017 Social History Tobacco Use Types Packs/Day Years Used Date Smoking Tobacco: Never Smokeless Tobacco: Never Tobacco Cessation:Counseling Given: Yes Alcohol Use Standard Drinks/Week Comments Yes 8.3 (1 standard drink = 0.6 oz p ure alcohol) Sex and Gender Information Value Date Recorded Sex Assigned at Not on file Gender Identity Not on file Sexual Orientation Not on file Last Filed Vital Signs Vital Sign Reading Time Taken Comments Blood Pressure 137/76 04/11/2012 2:36 PM CDT Pulse 48 04/11/2012 2:36 PM CDT Temperature 36.1 C (97 F) 04/11/2012 2:36 PM CDT Respiratory Rate 16 04/11/2012 2:36 PM CDT Oxygen Saturation 100% 04/11/2012 2:36 PM CDT Inhaled Oxygen Concentration - - Weight 69.9 kg (154 lb 1.6 oz) 04/11/2012 9:50 A M CDT Height 171.5 cm (5' 7.5 ) 04/11/2012 9:50 AM CDT Body Mass Index 23.78 04/11/2012 9:50 AM CDT Plan of Treatment Health Maintenance Due Date Last Done Comments MEDICARE AWV 12 MONTHS 1940 DTAP/TDAP/TD VACCINES (1 - Tdap) 1959 PNEUMOCOCCAL VACCINE 50+ (1 of 1 - PCV) 1990 ZOSTER VACCINE (1 of 2) 1990 Respiratory Syncytial Virus (RSV) Vaccine Pt: or over 60 yrs (1 - 1-dose 75+ series) 2015 COVID-19 VACCINE ( - 2023-2 5 season) 2024 DEPRESSION SCREENING 08/02/2024 INFLUENZA VACCINE (Season Ended) 2025 05/10/20 17 HEPATITIS B VACCINE Aged Out No longe r eligible based on patient's age to complete this topic HIB VACCINE Aged Out No longer eligi ble based on patient's age to complete this topic HPV VACCINE Aged Out No longer eligi ble based on patient's age to complete this topic MENINGOCOCCAL (Group B) VACC INE SHARED DECISION-MAKING Aged Out No longer eligibl e based on patient's age to complete this topic MENINGOCOCCAL GROUPS A/C/Y/W VACCINE Aged Out No longer eligible b ased on patient's age to complete this topic Advance Directives * FULL RESUSCITATION (Latest Code Status on File) Date Activated Date Inactivated Comments 11/30/2011 12:18 PM 12/02/2011 2:07 AM
--- OUTSIDE RECORDS SUMMARY | 2024-11-06 11:14 | XMS_ITS | Data Portability ---
Author Organization [place] - [facility], Main Office Address [address] [place] [address] Care Team Providers Care Threat Analyst Name Role Phone MARCI CHOI Primary Care Provider MARCI CHOI Referring Provider Assessment Encounter Date Assessment Date Assessment LastModified by Organization Details LastModified Time 06/01/2024 06/01/2024 right inguinal hernia, symptomatic. Patient would like to get a repaired and will try to find a date in the next few weeks. He will call us. Surgical procedure detail to the patient risks and benefits were discussed. Main risks include bleeding, infection chronic pain and testicular atrophy [email or web address] Not available 06/01/2024 12:46:32 Plan of Treatment Reminders Order Date Submit Date Provider Last Modified By Organization Details Last Modified Time Details Appointments None recorded . Lab T4, free, serum 03/29/20 [facility] - Outpatient Lab, [address] [place], [address], 4 12:46:09 TSH, serum or plasma 03/29/20 [facility] Outpatient Lab, [address] [place], [address], 4 12:57:17 CBC w/ auto diff 03/29/20 [facility] Outpatient Lab, [address] [place], [address], 4 11:58:17 CMP, serum or plasma 03/29/20 [facility] Outpatient Lab, [address] [place], [address], 4 12:29:20 lipid panel, serum 024 03/29/20 [facility] - Outpatient Lab, [address] [place], [address], 4 12:29:31 Referral None recorded . Procedures None recorded . Surgeries None recorded . Imaging None recorded . Medication Orders None recorded . Patient TargetsNo targets recorded. Patient Instructions Encounter Date Encounter Id Patient Instructions Last Modified By Organization Details Last Modified Time 11/24/2023 [id number] Degenerative sue nt disease, carcinoma of the prostate, anxiety as well as a asymptomatic small abdominal aortic aneurysm. All clinically stable. Does not any blood work done at this time. Will recheck back in four months. Continue on current medications Next Appointment: 4 Months Approximate Date: 03/23/2024 Portions of the record may have been created with voice recognition software. Occasional wrong-word or agbdv-j-[id number] substitutions may have occurred due to the inherent limitations of voice recognition software. Read the chart carefully and recognize, using context, where substitutions have occurred. [email or web address] Not available 11/24/2023 12:14:50 03/29/2024 [id number] dementia rating scale-2* [email or web address] Not available 03/29/2024 12:13:59 alcohol misuse* [email or web address] Not available 03/29/2024 12:13:59 depression screening* [email or web address] Not available 03/29/2024 12:13:59 multi-dimensiona health assessment questionnaire* [email or web address] Not available 03/29/2024 12:13:59 Personalized [facility] Plan and Screening Recommendations Advance Directives - Do you have one? No Advance Directives - Do we have your advance directive on file in your health record? Primary Prevention/Interven tion (prevents or decreases the chance of common diseases from occurring) Smoking Risk: Non Smoker Alcohol Misuse Screening: Negative Weight: Appropriate Physical activity: Appropriate physical activity Nutrition: Good Fall Risk (screened today): Low Vaccines Pneumococcal: Ordered Recommended today Recommended today, but you have declined No further needed Influenza: Your next one in the fall of this year Chronic Disease Risks Stroke: Low Risk I have no recommendations Heart Attack: Low risk I have no recommendations Clogging of the Arteries: Low risk I have no recommendations Diabetes: Low Risk I have no recommendations Secondary Prevention/Interven tion (detects treatable diseases before they may cause symptoms, disability, or ) Prostate Cancer Screening: Colon Cancer Screening: Colonoscopy No screening necessary Date Screening Last Performed: Eye Disease Screening: Dementia Risk: Low I have no recommendations Depression Screening: Negative [email or web address] Not available 03/29/2024 12:02:24 Medicare wellnes s evaluation risk assessment stable. Follow-up for abdominal aortic aneurysm asymptomatic, anxiety disorder and neoplasm of the prostate malignant by history. Will need blood work in the form of CBC, CMP, thyroid, lipid. Continue on current Rx follow-up in six months. Next Appointment: 6 Months Approximate Date: 09/25/2024 Portions of the record may have been created with voice recognition software. Occasional wrong-word or xbzng-w-bylw substitutions may have occurred due to the inherent limitations of voice recognition software. Read the chart carefully and recognize, using context, where substitutions have occurred. Not available 03/29/2024 12:13:40 10/18/2024 [id number] Right inguinal hernia, anxiety disorder, small abdominal aortic aneurysm as well as neoplasm of the prostate all clinically stable at this time. Follow-up in six months Additional Orders - Directives - Recommendations 1. CT scan of the abdomen and pelvis follow-up abdominal aortic aneurysm after the November 03. 2. Consider seeing Dr. Milner again for the inguinal hernia Follow Up: 6 Months Approximate Date: 04/16/2025 Portions of record are template driven. When necessary additional context will be provided. Additionally some portions have been created with voice recognition software. Occasional wrong-word or bumky-h-jthf substitutions may have occurred due to the inherent limitations of voice recognition software. Read the chart carefully and recognize, using context, where substitutions may have occurred. Created: Marci Choi M.D. 10.18.2024 10:32 AM [email or web address] Not available 10/18/2024 11:32:13 Reason for Referral None Reported. Results Created Date Observation Date Name Description Value Unit Range Abnormal Flag Note LastModifiedBy Organization Detail LastModifiedTime 03/30/20 24 03/30/2024 CBC/C OMPLE TE BLD COUNT W/DIF F white blood cells 4.7 x10'3 /uL 4.2-10 .8 Not Available [facility] (Lab) [address] [place], [address], 03/30/2024 11:58:16 03/30/20 24 03/30/2024 CBC/C OMPLE TE BLD COUNT W/DIF F red blood cells 4.18 x10'6 /uL 4.10-5 .80 Not Available [facility] (Lab) [address] [place], [address], 03/30/2024 11:58:16 03/30/20 24 03/30/2024 CBC/C OMPLE TE BLD COUNT W/DIF F hemoglobin 14.1 g/dL 13.2-1 7.0 Not Available [facility] (Lab) [address] [place], [address], 03/30/2024 11:58:16 03/30/20 24 03/30/2024 CBC/C OMPLE TE BLD COUNT W/DIF F hematocrit 41.1 % 39.3-5 0.0 Not Available [facility] (Lab) [address] [place], [address], 03/30/2024 11:58:16 03/30/20 24 03/30/2024 CBC/C OMPLE TE BLD COUNT W/DIF F mean red cell volume 98.3 fL 80.0-9 7.0 high Not Available [facility] (Lab) [address] [place], [address], 03/30/2024 11:58:16 03/30/2003/30/2024 CBC/C OMPLE TE BLD COUNT W/DIF F mean red cell hemoglobin 33.7 pg 27.0-3 3.0 high Not Available [facility] (Lab) [address] [place], [address], 03/30/2024 11:58:16 08/29/20 24 03/30/2024 CBC/C OMPLE TE BLD COUNT W/DIF F mean RBC HGB concentratio n 34.3 g/dL 31.0-3 6.0 Not Available [facility] (Lab) [address] [place], [address], 03/30/2024 11:58:16 03/30/20 24 03/30/2024 CBC/C OMPLE TE BLD COUNT W/DIF F red cell distribution width 12.6 % 11.8-1 5.5 Not Available [facility] (Lab) [address] [place], [address], 03/30/2024 11:58:16 03/30/20 24 03/30/2024 CBC/C OMPLE TE BLD COUNT W/DIF F platelets 269 x10'3 /uL 150-40 0 Not Available [facility] (Lab) [address] [place], [address], 03/30/2024 11:58:16 03/30/20 24 03/30/2024 CBC/C OMPLE TE BLD COUNT W/DIF F mean platelet volume 10.2 fL 9.0-12 .4 Not Available [facility] (Lab) [address] [place], [address], 03/30/2024 11:58:16 03/30/20 24 03/30/2024 CBC/C OMPLE TE BLD COUNT W/DIF F neutrophils 50.0 % 39.0-7 2.0 Not Available [facility] (Lab) [address] [place], [address], 03/30/2024 11:58:16 03/30/20 24 03/30/2024 CBC/C OMPLE TE BLD COUNT W/DIF F lymphocytes 39.3 % 16.0-4 7.0 Not Available [facility] (Lab) [address] [place], [address], 03/30/2024 11:58:16 03/30/20 24 03/30/2024 CBC/C OMPLE TE BLD COUNT W/DIF F monocytes 7.2 % 5.0-12 .0 Not Available [facility] (Lab) [address] [place], [address], 03/30/2024 11:58:16 03/30/20 24 03/30/2024 CBC/C OMPLE TE BLD COUNT W/DIF F eosinophils 2.3 % 1.0-7. 0 Not Available [facility] (Lab) [address] [place], [address], 03/30/2024 11:58:16 03/30/20 24 03/30/2024 CBC/C OMPLE TE BLD COUNT W/DIF F basophils 0.4 % 0.0-2. 0 Not Available [facility] (Lab) [address] [place], [address], 03/30/2024 11:58:16 03/30/20 24 03/30/2024 CBC/C OMPLE TE BLD COUNT W/DIF F immature granulocytes 0.8 % 0.00-0 .50 high Not Available [facility] (Lab) [address] [place], [address], 03/30/2024 11:58:16 03/30/20 24 03/30/2024 CBC/C OMPLE TE BLD COUNT W/DIF F neutrophils, absolute count 2.36 x10'3 /uL 1.5-8. 0 Not Available [facility] (Lab) [address] [place], [address], 03/30/2024 11:58:16 03/30/20 24 03/30/2024 CBC/C OMPLE TE BLD COUNT W/DIF F lymphocytes, absolute count 1.86 x10'3 /uL 1.07-3 .43 Not Available [facility] (Lab) [address] [place], [address], 03/30/2024 11:58:16 03/30/20 24 03/30/2024 CBC/C OMPLE TE BLD COUNT W/DIF F monocytes, absolute count 0.34 x10'3 /uL 0.29-0 .99 Not Available [facility] (Lab) [address] [place], [address], 03/30/2024 11:58:16 03/30/20 24 03/30/2024 CBC/C OMPLE TE BLD COUNT W/DIF F eosinophils, absolute count 0.11 x10'3 /uL 0.02-0 .53 Not Available [facility] (Lab) [address] [place], [address], 03/30/2024 11:58:16 03/30/20 24 03/30/2024 CBC/C OMPLE TE BLD COUNT W/DIF F basophils, absolute count 0.02 x10'3 /uL 0.01-0 .08 Not Available [facility] (Lab) [address] [place], [address], 03/30/2024 11:58:16 03/30/20 24 03/30/2024 CBC/C OMPLE TE BLD COUNT W/DIF F immature granulocytes ,absolute 0.04 x10'3 /uL 0.00-0 .05 Not Available [facility] (Lab) [address] [place], [address], 03/30/2024 11:58:16 03/30/20 24 03/30/2024 CBC/C OMPLE TE BLD COUNT W/DIF F nucleated red blood cells 0.0 % -0 Not Available [facility] (Lab) [address] [place], [address], 03/30/2024 11:58:16 03/30/20 24 03/30/2024 CBC/C OMPLE TE BLD COUNT W/DIF F NRBC# 0.00 x10'3 /uL Not Available [facility] (Lab) [address] [place], [address], 03/30/2024 11:58:16 03/30/20 24 03/30/2024 COMPR EHENS SALMA METAB OLIC PANEL sodium 138 mmol/ L 137-14 5 Not Available [facility] (Lab) [address] [place], [address], 03/30/2024 12:29:20 03/30/20 24 03/30/2024 COMPR EHENS SALMA METAB OLIC PANEL potassium 4.7 mmol/ L 3.5-5. 1 Not Available [facility] (Lab) [address] [place], [address], 03/30/2024 12:29:20 03/30/20 24 03/30/2024 COMPR EHENS SALMA METAB OLIC PANEL chloride 107 mmol/ L 98-107 Not Available [facility] (Lab) [address] [place], [address], 03/30/2024 12:29:20 03/30/20 24 03/30/2024 COMPR EHENS SALMA METAB OLIC PANEL carbon dioxide 28 mmol/ L 22-30 Not Available [facility] (Lab) [address] [place], [address], 03/30/2024 12:29:20 03/30/20 24 03/30/2024 COMPR EHENS SALMA METAB OLIC PANEL anion gap 7.7 mmol/ L 14-22 low Not Available [facility] (Lab) [address] [place], [address], 03/30/2024 12:29:20 03/30/20 24 03/30/2024 COMPR EHENS SALMA METAB OLIC PANEL glucose 90 mg/dL 70-99 Not Available [facility] (Lab) [address] [place], [address], 03/30/2024 12:29:20 08/29/20 24 03/30/2024 COMPR EHENS SALMA METAB OLIC PANEL BUN 18 mg/dL 8-19 Not Available [facility] (Lab) [address] [place], [address], 03/30/2024 12:29:20 03/30/20 24 03/30/2024 COMPR EHENS SALMA METAB OLIC PANEL creatinine 0.77 mg/dL 0.66-1 .25 Not Available [facility] (Lab) [address] [place], [address], 03/30/2024 12:29:20 03/30/20 24 03/30/2024 COMPR EHENS SALMA METAB OLIC PANEL GFR >60 Refer ence Range : [place] ge GFR Healt hy Adult : >60 mL/mi n/1.7 3 m2 Chron ic Kidne y Disea se: 15-60 mL/mi n/1.7 3 m2 Kidne y Failu re: <15/m L/min /1.73 m2 www.n iddk. nih.g ov The MDRD study equat ion has not been valid ated in child lennie <18 years of age; pregn ant women ; the elder ly >85 years of age; or in some racia l or ethni c subgr oups, such as ar nics. Outsi de the valid ated juanpablo eters , estim ated GFR is less accur ate, requi ring clini geneva judgm ent on a case- by-ca se basis . Clini geneva inter preta tion for other races and ages must be made by the clini elana. The MDRD study equat ion has not been valid ated for the evalu ation of serum creat inine relat ed to nutri aicha l statu s or medic ation usage . For perso ns <18 years of age, a pedia tric GFR calcu lator is avail able on the [facility] websi te: https :[email or web address] cardenas.earle almazan.o rg/pr ofess ional s/kdo qi/gf r_cal culat or Not Available [facility] (Lab) [address] [place], [address], 03/30/2024 12:29:20 03/30/20 24 03/30/2024 COMPR EHENS SALMA METAB OLIC PANEL alkaline phosphatase 59 U/L 38-126 Not Available [facility] (Lab) [address] [place], [address], 03/30/2024 12:29:20 03/30/20 24 03/30/2024 COMPR EHENS SALMA METAB OLIC PANEL alanine aminotransfe rase 18 U/L 0-50 Not Available [facility] (Lab) [address] [place], [address], 03/30/2024 12:29:20 03/30/20 24 03/30/2024 COMPR EHENS SALMA METAB OLIC PANEL aspartate aminotransfe rase 30 U/L 15-46 Not Available [facility] (Lab) [address] [place], [address], 03/30/2024 12:29:20 03/30/20 24 03/30/2024 COMPR EHENS SALMA METAB OLIC PANEL bilirubin, total 0.70 mg/dL 0.20-1 .30 Not Available [facility] (Lab) [address] [place], [address], 03/30/2024 12:29:20 03/30/20 24 03/30/2024 COMPR EHENS SALMA METAB OLIC PANEL calcium 9.0 mg/dL 8.4-10 .2 Not Available [facility] (Lab) [address] [place], [address], 03/30/2024 12:29:20 03/30/20 24 03/30/2024 COMPR EHENS SALMA METAB OLIC PANEL total protein 6.9 g/dL 6.3-8. 2 Not Available [facility] (Lab) [address] [place], [address], 03/30/2024 12:29:20 03/30/20 24 03/30/2024 COMPR EHENS SALMA METAB OLIC PANEL albumin 4.2 g/dL 3.0-4. 4 Not Available [facility] (Lab) [address] [place], [address], 03/30/2024 12:29:20 03/30/20 24 03/30/2024 COMPR EHENS SALMA METAB OLIC PANEL globulin 2.7 g/dL 2.6-4. 2 Not Available [facility] (Lab) [address] [place], [address], 03/30/2024 12:29:20 03/30/20 24 03/30/2024 COMPR EHENS SALAM METAB OLIC PANEL A/G ratio 1.6 ratio 1.0-2. 0 Not Available [facility] (Lab) [address] [place], [address], 03/30/2024 12:29:20 03/30/20 24 03/30/2024 LIPID PANEL cholesterol 165 mg/dL 140-19 9 NIH FARHANA NSUS RECOM MENDA TION FOR JAYLYN STERO L: ADULT CHILD LOW RISK: <200 <170 BORDE RLINE : <200- 239 ----- HIGH RISK: >240 >200 Not Available [facility] (Lab) [address] [place], [address], 03/30/2024 12:29:30 03/30/20 24 03/30/2024 LIPID PANEL triglyceride s 77 mg/dL 0-150 NIH FARHANA NSUS REPOR T RECOM MENDA TION FOR TRIGL YCERI NIKKI: ADULT CHILD LOW RISK: <150 ----- BODER LINE: 150-1 99 ----- HIGH RISK: >200 ----- Not Available [facility] (Lab) [address] [place], [address], 03/30/2024 12:29:30 03/30/20 24 03/30/2024 LIPID PANEL HDL cholesterol 74 mg/dL 40- Not Available [facility] (Lab) [address] [place], [address], 03/30/2024 12:29:30 03/30/20 24 03/30/2024 LIPID PANEL LDL cholesterol, calculated 76 mg/dL 0-130 NIH FARHANA NSUS REPOR T RECOM MENDA TIONS FOR LDL: ADULT CHILD LOW RISK <130 <110 (OPTI MAL LDL) <100 ----- BORDE RLINE : 130-1 59 ----- HIGH RISK: >160 >130 A TRIGL YCERI DE RESUL T >400 INVAL IDATE S THE CALCU LATIO N FOR LDL FRACT IONAT ION - THE LDL RESUL T WILL NOT BE REPOR AMY. Not Available [facility] (Lab) [address] [place], [address], 03/30/2024 12:29:30 03/30/20 24 03/30/2024 T4 FREE free T4 0.71 NG/dL 0.78-2 .19 low Not Available [facility] (Lab) [address] [place], [address], 03/30/2024 12:46:09 03/30/20 24 03/30/2024 TSH thyroid-stim ulating hormone 1.290 uIU/m L 0.465- 4.680 Not Available [facility] (Lab) [address] [place], [address], 03/30/2024 12:57:17 11/04/19 24 11/04/2023 CT, abdom en + pelvi s, w/ contr ast No observ ation record ed. [address], [place], [address], 11/04/2023 12:24:08 11/04/19 24 11/04/2023 CT, abdom en + pelvi s, w/ contr ast No observ ation record ed. [address], [place], [address], 11/04/2023 12:23:46 Result Notes None recorded. 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 125903925 Active Not Available [facility] 3 12:50:23 Partial thickness rotator cuff tear 689811763 Active Not Available [facility] 3 12:50:23 Osteoarthriti s of hip 533832587 Active Not Available [facility] 3 12:50:23 Osteoarthriti s of knee 619226543 Active Not Available [facility] 3 12:50:23 Shoulder joint pain 455045827 Active Not Available [facility] 3 12:50:23 Dental abscess 271259401 Active 2021 Not Available [facility] 3 12:50:23 Knee pain Active Not Available [facility] 3 12:50:23 Bronchitis 19190464 Active Not Available [facility] 3 12:50:23 Osteoarthriti s 682828043 Active Not Available [facility] 3 12:50:23 Cough 50719045 Active 2021 Not Available [facility] 3 12:50:23 Disorder of bursa of shoulder region 12198379 Active Not Available [facility] 3 12:50:23 Pruritic rash 75849138 Active Not Available [facility] 3 12:50:23 Rhinitis 84915587 Active Not Available [facility] 3 12:50:23 Anxiety 61108498 Active 2022 Catherine Oliveira CMA null, [place] [facility] [employer] [facility] 3 10:10:37 Overactive urinary bladder 254631258 Active 2022 Marci Choi MD [address], [place], [address] , [place] [facility] 3 12:33:41 Disorder of prostate 21818529 Active 2022 Marci Choi MD [address], [place], [address] , [place] [facility] 3 12:35:22 Acute sinusitis 61039855 Active 2023 Macri Choi MD [address], [address], [place], [address] , [place] [facility] 4 10:46:09 Abdominal pain 19000506 Active 2023 Maritza Gorman null, [place] [facility] 4 11:12:27 Abdominal aortic aneurysm 151420941 Active 2023 Marci Choi MD [address], [address], [place], [address] , [place] [facility] 4 12:12:45 Inguinal hernia 983031529 Active 2023 Catherine Oliveira CMA null, [place] [facility] 4 11:43:34 Right inguinal hernia 963368218 Active 2023 Bhanu johnson MD [address], [address], [place], [address] , [place] [facility] 4 14:45:38 Problem Notes None recorded. Procedures Surgical History Date Name Laterality Status Provider Name and Address Organization Details Recorded Time 4 Medicare Wellness CPT Code, subsequent completed Sol Meredith RN [facility] 03/29/2024 11:56:32 3 Medicare Wellness CPT Code, subsequent completed Sol Meredith RN [facility] 12/16/2022 12:11:14 Imaging Results Imaging Date Name Status [facility]Modified by [facility] Details LastModified Time 11/04/2023 CT, abdomen + pelvis, w/ contrast completed [place] [id number] [facility] [address], [place], [address], 11/04/2023 12:24:08 11/04/2023 CT, abdomen + pelvis, w/ contrast completed [place] [address], [place], [address], 11/04/2023 12:23:46 Procedure Notes None recorded. Medical Equipment None Reported. Allergies No known drug allergies Medications Name Sig Start Date Stop Date Status Note LastModified by Organization Details LastModified Time amoxicill in 500 mg capsule TAKE 4 CAPSULES BY MOUTH 1 HOUR BEFORE DENTAL PROCEDUR E FOR ANTIBIOT IC OR PROPHYLA XIS 10/18 completed Not Available Not Available Not Available prednison e 10 mg tablet active Not Available Not Available Not Available oxybutyni n chloride ER 15 mg tablet,ex tended release 24 hr TAKE 1 TABLET BY MOUTH EVERY OTHER DAY 10/18 completed Not Available Not Available Not Available clindamyc in HCl 300 mg capsule Take 1 capsule every 6 hours by oral route. 12/16 completed Not Available Not Available Not Available azithromy zoie 250 mg tablet TK 2 TS PO ON DAY 1, THEN TK 1 T PO D FOR 4 DAYS 12/18 completed Not Available Not Available Not Available clorazepa te dipotassi um 3.75 mg tablet Take 1 tablet twice a day by oral route. 05/18 completed [facility]ino[facility] pharmacy did not get rx from 08-19-18 Not Available Not Available Not Available benzonata te 200 mg capsule Take 1 capsule 3 times a day by oral route. 12/16 completed Not Available Not Available Not Available clarithro mycin 500 mg tablet active Not Available Not Available No t Available meloxicam 15 mg tablet active Not Available Not Available Not Available prednison e 20 mg tablet 05/19 completed Not Available Not Available Not Available Doc-Q-Lac e 100 mg capsule TAKE ONE CAPSULE BY MOUTH BID active Not Available Not Available No t Available Flonase 50 mcg/actua tion nasal spray,wilfred pension Inhale 1 spray every day by intranas al route at bedtime for 30 days. 06/15 completed Not Available Not Available Not Available fexofenad ine 180 mg tablet TK 1 T PO QD HS active Not Available Not Available No t Available ciproflox acin 500 mg tablet active Not Available Not Available No t Available tramadol 50 mg tablet TAKE 1 TABLET BY MOUTH EVERY 6 HOURS NEEDED FOR PAIN 12/16 completed Not Available Not Available Not Available nystatin- triamcino lone 100,000 unit/gram -0.1 % topical ointment APPLY EXTERNAL LY TO THE AFFECTED AREA TWICE DAILY TO THREE TIMES DAILY DIRECTED 12/16 completed Not Available Not Available Not Available Promethaz ine VC-Codein e 6.25 mg-5 mg-10 mg/5 mL oral syrup Take 10 mL 3 times a day by oral route. active Not Available Not Available No t Available meloxicam 7.5 mg tablet 12/18 completed Not Available Not Available Not Available oxycodone -acetamin ophen 5 mg-325 mg tablet active Not Available Not Available Not Available Guaiatuss in AC 10 mg-100 mg/5 mL oral liquid Take 10 mL 3 times a day by oral route. active Not Available Not Available No t Available amoxicill in 875 mg tablet TAKE 1 TABLET BY MOUTH TWICE DAILY FOR 10 DAYS 10/18 completed Not Available Not Available Not Available lorazepam 0.5 mg tablet TAKE 1 TABLET BY MOUTH TWICE DAILY NEEDED active Not Available Not Available No t Available betametha sone, augmented 0.05 % topical gel active Not Available Not Available Not Available benzonata te 100 mg capsule TAKE 1 CAPSULE BY MOUTH EVERY 8 HOURS NEEDED 10/18 completed Not Available Not Available Not Available cephalexi n 500 mg capsule Take 1 capsule twice a day by oral route. 05/11 completed Not Available Not Available Not Available Bettie-D 12 Hour 60 mg-120 mg tablet,ex tended release TK 1 T PO BID active Not Available Not Available No t Available betametha sone dipropion ate 0.05 % topical cream apply daily 2013 active Not Available Not Available Not Avai lable hydrocodo ne 5 mg-acetam inophen 500 mg tablet active Not Available Not Available Not Available mupirocin 2 % topical ointment APPLY A PEA SIZE AMOUNT ON A CLEAN QTIP IN EACH NOSTRIL TWICE DAILY FOR 5 DAYS 12/16 completed Not Available Not Available Not Available levofloxa zoie 500 mg tablet TK 1 T PO ONCE D active Not Available Not Available No t Available methylpre dnisolone 4 mg tablets in a dose pack FOLLOW PACKAGE DIRECTIO NS. TAKE WITH FOOD. BEGIN TOMORROW MORNING 12/18 completed Not Available Not Available Not Available ipratropi um bromide 42 mcg (0.06 %) nasal spray active Not Available Not Available Not Available clorazepa te dipotassi um 7.5 mg tablet TAKE 1 TABLET BY MOUTH TWICE DAILY NEEDED 05/18 completed Not Available Not Available Not Available amoxicill in 875 mg-potass ium clavulana te 125 mg tablet TAKE ONE TABLET BY MOUTH EVERY 12 HOURS 11/23 completed Not Available Not Available Not Available oxycodone 5 mg tablet TAKE 1 TABLET BY MOUTH EVERY 4 TO 6 HOURS NEEDED FOR PAIN 12/16 completed Not Available Not Available Not Available enoxapari n 40 mg/0.4 mL subcutane ous syringe INJECT 1 SYRINGE Q 24 H active Not Available Not Available No t Available chlorhexi dine gluconate 0.12 % mouthwash SWISH 1 CAPFULL FOR 1 MINUTE AND THEN EXPECTOR ATE ONCE DAILY 12/16 completed Not Available Not Available Not Available Xarelto 10 mg tablet 12/16 completed Not Available Not Available Not Available [facility] D 12 Hour 5 mg-120 mg tablet,ex tended release TK 1 T PO BID PRF CONGESTI ON 05/11 completed Not Available Not Available Not Available Fluzone High-Dose (PF) 180 mcg/0.5 mL intramusc ular syringe ADM 0.5ML UTD active Not Available Not Available No t Available Paxlovid 300 mg (150 mg x 2)-100 mg tablets in a dose pack TK 2 NIRMATRE LVIR TS AND 1 RITONAVI R T TOGETHER PO TWICE DAILY FOR 5 DAYS 03/29 completed Not Available Not Available Not Available Vitals Date Recorded Body height Body mass index (BMI) Body weight Heart rate Oxygen saturation Oxygen saturation in Arterial blood by Pulse oximetry Systolic blood pressure Diastolic blood pressure Provider Name and Address Organization Details Last Updated DateTime 4 167.64 cm 25.7 kg/m2 70442.1 9 g 57 /min 94 % 94 % 122 mm[Hg] 78 mm[Hg] Teresa Faith [facility] [employer] [facility] 4 15:05:27 Date Recorded Body height Body mass index (BMI) Body weight Heart rate Body temperature Oxygen saturation Oxygen saturation in Arterial blood by Pulse oximetry Systolic blood pressure Diastolic blood pressure Provider Name and Address Organization Details Last Updated DateTime 4 167.64 cm 25.7 kg/m2 49063.1 9 g 66 /min 97 [degF] 94 % 94 % 138 mm[Hg] 80 mm[Hg] Teresaalexandre Guaman [employer] [facility] [employer] [facility] 4 11:57:45 Date Recorded Body height Body weight Heart rate Body temperature Oxygen saturation Oxygen saturation in Arterial blood by Pulse oximetry Systolic blood pressure Diastolic blood pressure Provider Name and Address Organization Details Last Updated DateTime 4 167.64 cm 78455.2 2 g 70 /min 97.5 [degF] 97 % 97 % 136 mm[Hg] 92 mm[Hg] TAVO Phillip [facility] [employer] [facility] 4 11:50:26 Date Recorded Pain severity - 0-10 verbal numeric rating [Score] - Reported Provider Name and Address Organization Details Last Updated DateTime 03/29/2024 0 Sol Meredith RN [facility] [employer] [facility] 03/29/2024 11:57:00 Date Recorded Body height Body mass index (BMI) Body weight Body temperature Heart rate Oxygen saturation Oxygen saturation in Arterial blood by Pulse oximetry Respiratory rate Systolic blood pressure Diastolic blood pressure Provider Name and Address Organization Details Last Updated DateTime 4 167.64 cm 24.9 kg/m2 85394.2 2 g 97.5 [degF] 72 /min 97 % 97 % 16 /min 140 mm[Hg] 90 mm[Hg] Maritza Contreras PA [employer] [facility] [employer] [facility] 4 12:15:40 Date Recorded Body height Body mass index (BMI) Body weight Heart rate Body temperature Oxygen saturation Oxygen saturation in Arterial blood by Pulse oximetry Systolic blood pressure Diastolic blood pressure Provider Name and Address Organization Details Last Updated DateTime 5 167.64 cm 25 kg/m2 10132.8 2 g 79 /min 97 [degF] 98 % 98 % 112 mm[Hg] 60 mm[Hg] Teresa Guaman [employer] [facility] [employer] 11:12:22 Social History Question Answer Notes LastModified by Organizat ion Details LastModified Time Tobacco Smoking Status Never Smoker TIMOTHY Robbins [facility] 12/16/2022 11:36:33 Do You Have An Advance Directive? No [id number] Information not available 09/30/2022 What Is Your Level Of Alcohol Consumption? Occasional Glass Of Wine [id number] Information not available 09/30/2022 Are You Blind Or Do You Have Difficulty Seeing? No [email or web address] Information not available 12/16/2022 Are You Deaf Or Do You Have Serious Difficulty Hearing? Yes [email or web address] Information not available 03/29/2024 What Type Of Diet Are You Following? REGULAR [id number] Information not available 09/30/2022 Have There Been Any Changes To Your Family Or Social Situation? No [email or web address] Information not available 12/16/2022 What Is The Fluoride Status Of Your Home? Unknown [email or web address] Information not available 12/16/2022 Are There Any Guns Present In Your Home? Yes [email or web address] Information not available 12/16/2022 Do You Use Insect Repellent Routinely? No [email or web address] Information not available 12/16/2022 Where Do You Live? SingleLevelHouse [email or web address] Information not available 12/16/2022 Guns Present In The Home? Yes [email or web address] Information not available 12/16/2022 Are You Able To Care For Yourself? Yes [email or web address] Information not available 12/16/2022 Are You Blind Or Do Yo Have Difficulty Seeing? No [email or web address] Information not available 12/16/2022 Are You Deaf Or Do You Have Serious Difficulty Hearing? Yes [email or web address] Information not available 12/16/2022 Live Alone Of With Others? With Others [email or web address] Information not available 12/16/2022 Do You Have A Medical Power Of Produce Team Lead? No [email or web address] Information not available 12/16/2022 What Was The Date Of Your Most Recent Tobacco Screening? 03/29/2024 [email or web address] Information not available 03/29/2024 Do You Have Any Pets? No [email or web address] Information not available 12/16/2022 What Is Your Relationship Status? [id number] Information not available 09/30/2022 Do You Use Your Seat Belt Or Car Seat Routinely? Yes [email or web address] Information not available 12/16/2022 Do You Have Smoke And Carbon Monoxide Detectors In Your Home? Yes [email or web address] Information not available 12/16/2022 Are You Passively Exposed To Smoke? No [email or web address] Information not available 12/16/2022 Are There Any Smokers In Your House? No [email or web address] Information not available 12/16/2022 Do You Use Sunscreen Routinely? No [email or web address] Information not available 12/16/2022 Have You Recently Traveled Abroad? No [email or web address] Information not available 12/16/2022 Do You Have Any Dietary Restrictions? No [email or web address] Information not available 12/16/2022 Sex: Unknown Functional Status Question Answer Note LastModified by Organizat ion Details LastModified Time Do you have difficulty walking or climbing stairs? No [email or web address] Information not available 12/16/2022 Do you have transportation difficulties? No [email or web address] Information not available 12/16/2022 Are you able to walk? YESWOREST Information not available 12/16/2022 Do you have difficulty doing errands alone? No [email or web address] Information not available 12/16/2022 Are you able to care for yourself? Yes Information n ot available 12/16/2022 Do you have difficulty dressing or bathing? No Information not available 12/16/2022 What is your exercise level? Heavy daily [id number] Information not available 09/30/2022 Mental Status Question Answer Note LastModified by Organization D etails LastModified Time Do you have difficulty concentrating, remembering or making decisions? No [email or web address] Information no t available 12/16/2022 Family History Relationship Description Onset Age of this Age Resolved Age Notes LastModified by Organization Details LastModified Time Mother Heart disease [email or web address] Not available 05/04 12:18:34 Medical History Condition Response NERVE DISEASE N BLINDNESS N RHEUMATIC FEVER N KIDNEY STONES N BLADDER PROBLEMS N MRSA N OTHER # 1 N POLIO N LUNG DISEASE/DISORDER N HISTORY OF DRUG ABUSE N RADIATION / CHEMOTHERAPY N COPD N Other # 2 N BLOOD DISEASES N EAR OR HEARING PROBLEMS N MUMPS N SHINGLES N BOWEL PROBLEMS N DEPRESSION (INCLUDING POST ) N STROKE/TIA N ULCERS N BENIGN PROSTATIC HYPERPLASIA N MEASLES N HYPOTENSION N MYOCARDIAL INFARCTION N OBESITY N GERD/NAUSEA N ANEURYSM N URINARY/BLADDER/KIDNEY PROBLEMS N CORONARY ARTERY DISEASE (CAD) N ADDICTION CONCERNS N Impotence N ENDOMETRIOSIS N USE OF BLOOD THINNERS N SKIN PROBLEMS N GASTROINTESTINAL DISORDER N PERIPHERAL VASCULAR DISEASE N MUSCLE,JOINT OR BONE PROBLEMS N GASTROINTESTINAL BLEEDING N BLOOD CLOTS N ASTHMA N CATARACTS N ERECTILE DYSFUNCTION N VARICOSITIES N GI PROBLEMS N Low Testosterone N INFERTILITY N AIDS/HIV N CHEMOTHERAPY / RADIATION N LIVER DISEASE N MALE HYPOGONADISM N HYPERTENSION N Deficiency N TOURETTE'S N ANXIETY DISORDER Y BLOOD TRANSFUSION N ANEMIA/BLOOD DISORDER N CHRONIC EAR INFECTIONS N BRONCHITIS N TUBERCULOSIS N GLAUCOMA N FOOT PROBLEM N DIVERTICULITIS N SLEEP APNEA N CHICKENPOX N INFECTIOUS DISEASE N PROSTATE N HEART ARRHYTHMIA N INSOMNIA N HIGH CHOLESTEROL / HYPERLIPIDEMIA N EYE PROBLEMS N HYPERTHYROIDISM N EDEMA N CHRONIC PAIN SYNDROME N HYPOTHYROIDISM N CONSTIPATION N CAROTID BLOCKAGE N BACK / NECK PROBLEMS N HAVE YOU BEEN HOSPITALIZED OR SEEN IN [facility] IN THE PAST YEAR ? N ATHEROSCLEROSIS N BREAST PROBLEMS N DIALYSIS N ECZEMA N OSTEOPOROSIS N ARTHRITIS Y NO SIGNIFICANT PAST MEDICAL HISTORY N APPENDICITIS N DIABETES, TYPE N BAD TEETH N ENT N HEARTBURN / REFLUX N AUTISM SPECTRUM DISORDER (ASD) N HEPATITIS / LIVER DISEASE N GOUT N SLEEP DISORDER N ALZHEIMER'S DISEASE N Brain Problems N DEMENTIA N HERPES N SEIZURES/EPILEPSY N HEADACHES/MIGRAINES N VASCULAR DISEASE N PACEMAKER N Blood Disorder N DIZZINESS N HEART DISEASE/HEART PROBLEMS N KIDNEY DISEASE N MULTIPLE SCLEROSIS N CANCER: SPECIFY Y CARDIAC ARRHYTHMIA N ATRIAL FIBRILLATION N Gall Stones N PULMONARY EMBOLISM N AUTOIMMUNE DISEASE N Immunizations Vaccine Type Date Status Note Provider Nam e and Address Organization Details Recorded Time Pneumococcal conjugate PCV20, polysaccharide BYZ202 conjugate, adjuvant, PF 5 completed Teresa Guaman [employer] 10/23/2024 14:43:57 SARS-COV-2 (COVID-19) vaccine, UNSPECIFIED 3 completed Teresa Guaman [employer] 07/14/2023 12:10:47 Influenza, high-dose, quadrivalent, PF 3 completed Teresa Guaman [employer] 05/06/2023 16:53:38 Influenza, split virus, trivalent, preservative 3 completed Not Available [facility] 09/30/2022 12:54:32 Influenza, high-dose, trivalent, PF 7 completed Not Available [facility] 09/30/2022 12:54:32 COVID-19, mRNA, LNP-S, PF, 100 mcg/0.5mL dose or 50 mcg/0.25mL dose 1 completed Not Available [facility] 09/30/2022 12:54:32 Influenza, split virus, quadrivalent, preservative 1 completed Not Available [facility] 09/30/2022 12:54:32 SARS-COV-2 (COVID-19) vaccine, UNSPECIFIED 1 completed Not Available [facility] 09/30/2022 12:54:32 SARS-COV-2 (COVID-19) vaccine, UNSPECIFIED 1 completed Not Available [facility] 09/30/2022 12:54:32 Influenza, high-dose, quadrivalent, PF 2 completed Not Available [facility] 09/30/2022 12:54:33 Influenza, high-dose, trivalent, PF 6 completed Not Available [facility] 09/30/2022 12:54:33 Influenza, high-dose, trivalent, PF 5 completed Not Available [facility] 09/30/2022 12:54:33 Pneumococcal conjugate PCV 13 8 completed Not Available [facility] 09/30/2022 12:54:33 Pneumococcal conjugate PCV 13 7 completed Not Available [facility] 09/30/2022 12:54:33 Past Encounters Encounter ID Performer Location Encounter Start Date Encounter Closed Date Diagnosis/Indication Diagnosis SNOMED-CT Code Diagnosis ICD10 Code Diagnosis Note [id number] [facility] [address] [address] 12/05/2020 00:00:00 12/05/2020 10:49:50 [id number] S[facility] Internal Med [facility] [address] [address] 06/19/2021 00:00:00 06/19/2021 10:52:34 [id number] [facility] [address] [address] 12/18/2021 00:00:00 12/18/2021 11:06:20 [id number] [facility] [place] [address] [address] 05/06/2022 00:00:00 05/06/2022 12:22:59 [id number] Marci Choi MD [facility] Internal Med [place] [address] [address] 12/16/2022 11:35:53 12/16/2022 12:36:48 Adult health examination 669547353 Z00.00 Screening for disorder 468021413 Z13.9 Anxiety 31252066 F41.9 [id number] Marci Choi MD [facility] Internal Med [facility] [address] [address] 07/14/2023 11:42:13 07/14/2023 12:37:35 Anxiety 88334554 F41.9 Overactive urinary bladder 128624503 N32.81 Screening for cardiovascular system disease 975027143 Z13.6 Disorder of prostate 302 [address]137 N42.9 Fatigue 75846739 R53.83 [id number] Marci Choi MD [facility] Internal Med [facility] [address] [address] 10/28/2023 14:41:14 10/28/2023 16:47:12 [id number] Marci Choi MD [facility] [address] [address] 11/24/2023 11:24:49 11/24/2023 12:18:05 Osteoarthritis 930712493 M19.90 Neoplasm of prostate 126 684997 D49.59 Anxiety 84720059 F41.9 Abdominal aortic aneurysm 326757940 I71.40 [id number] Marci Choi MD [facility] Internal Med [facility] [address] [address] 03/29/2024 11:38:03 03/29/2024 12:15:47 Adult health examination 586625330 Z00.00 Screening for disorder 821723648 Z13.9 Abdominal aortic aneurysm 713614429 I71.40 Anxiety disorder 9463331 06 F41.9 Neoplasm of prostate 126 808602 D49.59 [id number] Bhanu johnson MD [facility] General Surgery 2043 [facility], [place] [address] [place] [address] 06/01/2024 11:43:33 06/01/2024 12:50:45 Right inguinal hernia 654881260 K40.90 [id number] Marci Choi MD [facility] Internal Med [place] [address] [facility], [place] [address] [place] [address] 10/18/2024 10:54:49 10/18/2024 11:37:25 Anxiety disorder 578796736 F41.9 Abdominal aortic aneurysm 926242745 I71.40 Right inguinal hernia 23 7895944 K40.90 Neoplasm of prostate 126 643529 D49.59 Health Concerns Section Related Observation LastModified by Organization Detai ls LastModified Time None Recorded Concern Status LastModified by Organization Details LastModified Time None Recorded Advance Directives Directive N: Payers Encounter Date Sequence Insurance Name Policy Number Policy Dove Covered Member ID Dove Member ID Guarantor Name 10/28/2023 1 [place] Phillip L Bridick [id number] Phillip L Bridick 10/28/2023 2 [employer] Don L Bridick [id number] Phillip L Bridick 11/24/2023 1 [place] Phillip L Bridick [id number] Phillip L Bridick 11/24/2023 2 [employer] Don L Bridick [id number] Phillip L Bridick 03/29/2024 1 [place] Phillip L Bridick [id number] Phillip L Bridick 03/29/2024 2 [employer] Don L Bridick [id number] Phillip L Bridick 06/01/2024 1 [place] Phillip L Bridick [id number] Phillip Styles 06/01/2024 2 [employer] Rom Styles [id number] Phillip Styles 10/18/2024 1 [place] Phillip Styles [id number] Phillip Styles 10/18/2024 2 [employer] Rom Frenchick [id number] Phillip Styles Notes Date Note Type Note Provider Name and Address Organization Details Recorded Time 11/24/2023 text/html Patient Name: Do juan manuel StylesDate Of Service: Wednesday ( 11.24.2023 ): 1940 Age: 83 There has been approximately a 3 lb weight gain since 07/14/2023. This represents approximately a 1.9% change in weight. Weight change attributable to lifestyle changes. Vital Signs:Blood Pressure: Sitting Rt. Arm 138/80Pulse: Sitting 66 /min and RegularRespiratory Rate: 12Height 66 in or 1.7 mWeight 159 lb or 72.1 kgBMI 25.7Temperature: 97 F or 36.1 CPulse Oximetry: 94 % at rest on no oxygen Chief Complaint: Addressed in HPI Problems or conditions discussed in the HPI were the only ones reviewed during the encounter.Only social and family history addressed in the HPI were reviewed during this encounter. Attendant(s): NoneConstitutional and Systemic Symptoms:none Medication Reconciliation: from medication list. 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 Need not nothing done for this at this juncture. Small renal cyst is noted. There is extensive artifact in the pelvic area where some of his discomfort is. No definite hernias noted recommend seeing one of the surgeons to further evaluate to see if they believe there is a hernia in this area. History of Present Illness #1. Hx of DJD stable. No interval complaints of any additional joint pain, swelling or redness. Joints most involved include hands. Medications: NSAIDS The DJD does not interfere with ADL and ambulation. #2. Hx of Ca of the prostate doing well. No interval complaints of any bone pain or other symptoms suggestive of metastatic disease. Having his PSA check regularly by us or the urologist. #3. Anxiety Disorder: History of anxiety disorder. There has been no panic attacks. No interval complaints of any vegetative or other signs of depression. Taking Lorazepam. Discussed possibility of decreasing and weaning off medication. Feels that current regimen is working fine and wishes not to change the current treatment regimen. Medication not causing any sedation or cognitive dysfunction and there is no contraindication to continue current therapy. #4. AAA: History of abdominal aortic aneurysm. No interval complaints of any unexplained abdominal or back pain. No syncope or pre syncope. Denies any history of any increase pulsation in the abdomen. No new back pain. The last aortic measurement was done several weeks ago. There has been no significant change in diameter. Is currently not taking because lung disease beta blockers.Measurement on recent CT scan 3.1 cm. 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 This represents approximately a 3.1% change in weight. Weight change attributable to lifestyle changes. Vital Signs:Blood Pressure: Sitting Rt. Arm 136/82Pulse: Sitting 70 /min and RegularRespiratory Rate: 14Height 66 in or 1.7 mWeight 154 lb or 69.9 kgBMI 24.9Temperature: 97.5 F or 36.4 CPulse Oximetry: 97 % at rest on no oxygen Chief Complaint: Addressed in HPI Problems or conditions discussed in the HPI were the only ones reviewed during the encounter.Only social and family history addressed in the HPI were reviewed during this encounter. A significant, separate E/M service was performed to evaluate the current and new problems. Attendant(s): NoneConstitutional and Systemic Symptoms:none Medication Reconciliation: from medication list. 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 Need not nothing done for this at this juncture. Small renal cyst is noted. There is extensive artifact in the pelvic area where some of his discomfort is. No definite hernias noted recommend seeing one of the surgeons to further evaluate to see if they believe there is a hernia in this area. History of Present Illness Reviewed the findings of the preventative health visit. Addressed all areas with the patient, patient's family or caregivers. Preventative examinations and testing immunizations - vaccinations and PSA all reviewed and ordered where patient was amenable to the recommendations. Cognitive function was normal. Depression addressed and where necessary medications were adjusted or instituted. End of life and living will briefly discussed with patient and where these can be filled out and legally executed. Other blood and imaging studies were ordered if considered necessary. Other recommendations may be found in the encounter note. #1. AAA: History of abdominal aortic aneurysm. No interval complaints of any unexplained abdominal or back pain. No syncope or pre syncope. Denies any history of any increase pulsation in the abdomen. No new back pain. The last aortic measurement was done Months ago with a diameter of 3.1 cm.. There has been no significant change in diameter. Is currently not taking because lung disease beta blockers. #2. Anxiety Disorder: History of anxiety disorder. There has been no panic attacks. No interval complaints of any vegetative or other signs of depression. Taking Lorazepam. Discussed possibility of decreasing and weaning off medication. Feels that current regimen is working fine and wishes not to change the current treatment regimen. Medication not causing any sedation or cognitive dysfunction and there is no contraindication to continue current therapy. #3. Hx of Ca of the prostate doing well. No interval complaints of any bone pain or other symptoms suggestive of metastatic disease. Having his PSA check regularly by us or the urologist. Active Medication ListOxybutynin 15 MG TABLET, EXTENDED RELEASE Once DailyLorazepam 0.5 MG (TABLET - ORAL) One Bid Vaccination and Sbiigxjcedym5633-01 Hsqmochau5502-24 Covid Booster Ndcuglu6928-99 Covid Iyexxbd6658-14 Hojpjxxhm6461-38 Prevnar 13 [facility] Surgical Koahywl9390-42 Rt TNI4906-83 Lt NEB6891-60 Bladder Xprsm2724-52 Radical Prostatectomy Preventative Testing( ) 07/14/2023 Albumin 4.5 G/DL H( ) 07/14/2023 PSA 0.17 NG/ML 07/14/2025 Social HistoryDoes not smokeDrinks sociallyRetired Managing Partner [employer] Family HistoryMother 39 CVAFather 56 [place] [employer] brother from septic shock Marci Choi MD [address] [place] [address], [place], [address], [employer] 03/29/2024 12:14:05 06/01/2024 text/html patient complain s of bulging on his right groin that he has noticed for approximately 1 year. It comes and goes. Denies pain nausea vomiting or any other symptoms. Cannot tell if it has gotten larger or not. Bhanu Milner MD [address], [facility] [address], [place], [phone], [employer] 06/01/2024 14:45:43 10/18/2024 text/html Patient Name: Do juan manuel FrenchickDate Of Service: Wednesday ( 10.18.2024 ): 1940 Age: 84 Vital Signs:Blood Pressure: Sitting Rt. Arm 112/60Pulse: Sitting 79 /min and RegularRespiratory Rate: 16Height 66 in or 1.7 mWeight 155 lb or 70.3 kgBMI 25.0Temperature: 97 F or 36.1 CPulse Oximetry: 98 % at rest on no oxygen Chief Complaint: Addressed in HPI Problems or conditions discussed in the HPI were the only ones reviewed during the encounter.Only social and family history addressed in the HPI were reviewed during this encounter. Attendant(s): NoneConstitutional and Systemic Symptoms:none Medication Reconciliation: from medication list. 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 Need not nothing done for this at this juncture. Small renal cyst is noted. There is extensive artifact in the pelvic area where some of his discomfort is. No definite hernias noted recommend seeing one of the surgeons to further evaluate to see if they believe there is a hernia in this area. History of Present Illness #1. History of right inguinal hernia with no evidence of any incarceration and or strangulation. Will consider having the patient be re-evaluated by surgery since there has been some increase in size of the hernia.: #2. Anxiety Disorder: History of anxiety disorder. There has been no panic attacks. No interval complaints of any vegetative or other signs of depression. Taking Lorazepam. Discussed possibility of decreasing and weaning off medication. Feels that current regimen is working fine and wishes not to change the current treatment regimen. Medication not causing any sedation or cognitive dysfunction and there is no contraindication to continue current therapy. #3. AAA: History of abdominal aortic aneurysm. No interval complaints of any unexplained abdominal or back pain. No syncope or pre syncope. Denies any history of any increase pulsation in the abdomen. No new back pain. The last aortic measurement was done within last year. There has been no significant change in diameter. Is currently not taking because lung disease beta blockers. Procedural Intervention: None. #4. Hx of Ca of the prostate doing well. No interval complaints of any bone pain or other symptoms suggestive of metastatic disease. Having his PSA check regularly by us or the urologist. Active Medication ListLorazepam 0.5 MG (TABLET - ORAL) One Bid Vaccination and Immunization(X) 2023-05 INFLUENZA( ) 2016- PREVNAR 13 GC(X) 2018-05 PNEUMOVAX PREVNAR 20 Needed( ) 2021-05 COVID MODERNA(X) 2023-05 COVID BOOSTER MODERNA Surgical Ogqdecz6927-25 Rt PPO9030-22 Lt QBI1454-10 Bladder Modvi2058-46 Radical Prostatectomy Preventative Testing( ) 06/05/2024 PSA 0.30 NG/ML( ) 03/30/2024 Albumin 4.2 G/DL Social HistoryDoes not smokeDrinks sociallyRetired Managing Partner [employer] Family HistoryMother 39 CVAFather 56 CA LungOne brother from septic shock Marci Choi MD [address] [facility], [facility] [address], [place], [address], [facility] 10/18/2024 11:32:41
--- OUTSIDE RECORDS SUMMARY | 2024-11-06 11:14 | XMS_ITS | Encounter Summary ---
Author Organization [facility] Address [facility] [facility] [place] [address] Care Team Providers Care Male Model Name Role Phone Unavailable Primary Care Provider Unavailabl e Encounter Details Date Type Department Care Team (Late st Contact Info) Description 05/05/2022 Lab Requisition [facility] [address] [place] [address] Zaki Bradshaw MD [address] [place] [address] Social History Tobacco Use Types Packs/Day Years Used Date Smoking Tobacco: Never Smokeless Tobacco: Never Alcohol Use Standard Drinks/Week Comments Yes 8.3 (1 standard drink = 0.6 oz p ure alcohol) Sex and Gender Information Value Date Recorded Sex Assigned at Not on file Gender Identity Not on file Sexual Orientation Not on file documented as of this encounter Plan of Treatment Not on file documented as of this encounter Procedures Procedure Name Priority Date/Time Associated Diagnosis Comments DERMATOPATHOLOGY Routine 05/04/2022 3:33 AM CDT documented in this encounter Results * DERMATOPATHOLOGY (05/04/2022 3:33 AM CDT) Case Report Dermatopathology Report Case: [id number] Authorizing Provider: Zaki Bradshaw MD Collected: 05/04/2022 03:33 AM Ordering Location: [facility] Received: 05/05/2022 06:44 AM Pathologist: Chana Hahn MD Specimen: Skin, mid upper back 10/05/202 2 12:57 PM CDT DERMATOPATHOLOGY LABORATORY Final Diagnosis Specimen A. SKIN, mid upper back: BASAL CELL CARCINOMA, NODULAR TYPE (C44.519) CALCINOSIS CUTIS (L94.2) 2 12:57 PM T DERMATOPATHOLOGY LABORATORY Clinical History BCC 12:57 PM CDT DERMATOPATHOLOGY LABORATORY Gross Description Specimen A: Received is one formalin filled container labeled with the patient's name and designated mid upper back. The specimen consists of a curettage and desiccation biopsy measuring [id number]. Jar 0. 12:57 PM T DERMATOPATHOLOGY LABORATORY Microscopic Description Specimen A. SKIN, mid upper back: Within the dermis there are aggregates of basaloid cells with a high nuclear to cytoplasmic ratio and peripheral palisading. Within the dermis, there are aggregates of homogenous amorphous basophilic material consistent with calcium. 12:57 PM CDT DERMATOPATHOLOGY LABORATORY Disclaimer An external and internal positive and negative controls are appropriate for the histochemical, immunohistochemical and immunofluorescence stain(s) in this case (if any), except where stated explicitly. The performance characteristics of the stain(s) cited in this report were developed and its performance characteristic determined by the Dermatopathology Laboratory at [facility], directed by Dr. Cachorro Squires. These tests need not be, and therefore are not, approved by the [place] Food and Drug Administration. The tests are used for clinical purposes. Billing Codes Specimen Charges Stain Charges 31573 1 12:57 PM CDT DERMATOPATHOLOGY LABORATORY Embedded Images 12:57 PM CDT DERMATOPATHOLOGY LABORATORY Pathology/Cytolo gy TISSUE SPECIMEN FROM SKIN / Unknown 05/04/2022 3:33 AM CDT 05/05/2022 6:44 AM CDT Zaki Bradshaw MD LAB - PATHOLOGY/CYTO LOGY ORDERABLES DERMATOPATHOLOGY LABORATORY [facility] Department of Dermatology [address] [phone] documented in this encounter Visit Diagnoses Not on filedocumented in this encounter
--- OUTSIDE RECORDS SUMMARY | 2024-11-06 11:14 | XMS_ITS | Encounter Summary ---
Author Organization [facility] Address [facility] [facility] [place] [address] Care Team Providers Care Interior Design Assistant Name Role Phone Unavailable Primary Care Provider Unavailabl e Encounter Details Date Type Department Care Team (Late st Contact Info) Description 04/10/2022 Lab Requisition [facility] [address] [facility] [place] [address] Zaki Bradshaw MD [address] [place], [place] [id number] Social History Tobacco Use Types Packs/Day Years [...] Priority Date/Time Associated Diagnosis Comments DERMATOPATHOLOGY Routine 04/09/2022 12:0 0 AM CDT documented in this encounter Results * DERMATOPATHOLOGY (04/09/2022 12:00 AM CDT) Case Report Dermatopathology Report Case: [id number] Authorizing Provider: Zaki Bradshaw MD Collected: 04/09/2022 12:00 AM Ordering Location: [facility] Received: 04/10/2022 11:59 AM Pathologist: Chana Hahn MD Specimen: Skin, right max face 09/12/202 2 5:33 PM CDT DERMATOPATHOLOGY LABORATORY Final Diagnosis Specimen A. SKIN, right max face: BASAL CELL CARCINOMA, INFILTRATIVE PATTERN (C44.319) 2 5:33 PM CDT DERMATOPATHOLOGY LABORATORY Clinical History Nodule BCC 2 5:33 PM CDT DERMATOPATHOLOGY LABORATORY Gross Description Specimen A: Received is one formalin filled container labeled with the patient's name and designated right max face. The specimen consists of a shave biopsy measuring 7x5x1 mm. Jar 0. 2 5:33 PM CDT DERMATOPATHOLOGY LABORATORY Microscopic Description Specimen A. SKIN, right max face: Within the dermis there are nodular aggregates of basaloid cells associated with fibromyxoid stroma and epithelial-stromal clefts. At the advancing margin of the neoplasm, there are smaller angulated nests that infiltrate the dermis. 2 5:33 PM CDT DERMATOPATHOLOGY LABORATORY Disclaimer An external [...] purposes. Billing Codes Specimen Charges Stain Charges 27025 1 2 5:33 PM CDT DERMATOPATHOLOGY LABORATORY Embedded Images 2 5:33 PM CDT DERMATOPATHOLOGY LABORATORY Pathology/Cytolog y TISSUE SPECIMEN FROM SKIN / Unknown 04/09/2022 04/10/2022 11:59 AM CDT Zaki Bradshaw MD LAB - PATHOLOGY/CYTO LOGY ORDERABLES DERMATOPATHOLOGY LABORATORY [facility] - Department of Dermatology [address] [phone] documented in this encounter Visit Diagnoses Not on filedocumented in this encounter
--- OUTSIDE RECORDS SUMMARY | 2024-11-06 11:14 | XMS_ITS | Clinical Summary ---
Author Organization [facility] Address [address] [place] [phone] Care Team Providers Care Rod Pointer Name Role Phone Miles Vera DC Primary Care Provider Allergies No known active allergies Medications No known medications Active Problems No known active problems Surgical History Surgery Date Site/Laterality Comments PROSTATE SURGERY Medical History Medical History Date Comments Cancer (HCC) Family History Medical History Relation Name Comments Cancer Father Stroke Mother Relation Name Status Comments Father Mother Social History Tobacco Use Types Packs/Day Years Used Date Smoking Tobacco: Never Smokeless Tobacco: Never Personal Safety Answer Date Recorded Getting School Help Needed Not on file 09/26 Sex and Gender Information Value Date Recorded Sex Assigned at Not on file 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 Gender Identity Not on file Sexual Orientation Not on file Obstetrics History Last Filed Vital Signs Vital Sign Reading Time Taken Comments Blood Pressure - - Pulse - - Temperature - - Respiratory Rate - - Oxygen Saturation - - Inhaled Oxygen Concentration - - Weight 72.6 kg (160 lb) 06/24/2021 10:06 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
== END 2024-11-06 09:54 | disposition home or self-care (01) ==
PROVIDERS: PCP Internal Medicine; Visit Provider Internal Medicine
DX: K40.90 Unilateral inguinal hernia, without obstruction or gangrene, not specified as recurrent (principal)
CPT/HCPCS: 74176